=== PATIENT | male | born 1960 | race Caucasian/White ===

== ENCOUNTER 2018-12-15 14:53 | Inpatient (IN) | payer BC, SELFPAY ==
[2018-12-15 14:02] VITALS: BMI 30.3
[2018-12-15 14:11] VITALS: BMI 30.3
[2018-12-15 14:15] VITALS: BP 129/84; PULSE 100; RESP 16; TEMP 36.6; O2SAT 95
[2018-12-15 14:28] VITALS: PULSE 101
--- NOTE | 2018-12-15 15:00 | HP.PCM_ITS ---
Problem List (1) Acute on chronic systolic CHF (congestive heart failure) Status: Acute (2) Chronic congestive heart failure Status: Chronic (3) History of right foot osteomyelitis Status: Chronic Comment: Status post amputation of the right little toe. (4) Hyperlipidemia Status: Chronic (5) Ischemic cardiomyopathy Status: Chronic (6) Coronary artery disease Status: Chronic Comment: Status post stents. (7) Type 2 diabetes mellitus Status: Chronic History of Present Illness Date of Admission: 12/15/18 Chief Complaint: Shortness of breath, leg edema. The patient is a 58 year old M with past medical history as mentioned above directly admitted from other facility for worsening shortness of breath and leg edema. According to the patient, his illness started around 1 week ago with slowly and progressively increasing shortness of breath, initially was with intense exertion, progressed over the last week to become even with moderate exertion, aggravated by activity, relieved with rest and associated with increasing bilateral leg edema. Patient denies any associated chest pain, palpitation, dizziness, syncope or presyncope. Initially, patient states that he has been taking his medications. His was at the bedside and she stated that he is not taking his medications. Patient admitted that he stopped taking his medications including diuretics since July,. He mentioned that he has been taking only his insulin. At this time, he is afebrile, heart rate is 100, blood pressure stable, pulse ox is 95% on 4 L of oxygen. Routine blood work that was done at the other facility was unremarkable except his blood sugar was 412 mg/dL and there was no evidence of DKA. His EKG revealed sinus tachycardia, heart rate has been around 100, normal MT interval, normal QRS, no acute ST elevation. Troponin was 0.205. Chest x-ray showed bilateral pulmonary vascular congestion with small left pleural effusion. He is being admitted for acute on chronic probably systolic CHF due to noncompliance as well as borderline elevated troponin. Past Medical History Past Medical History (Chronic Problems): Chronic Problems Chronic congestive heart failure (Chronic) History of right foot osteomyelitis (Chronic) Status post amputation of the right little toe. Hyperlipidemia (Chronic) Ischemic cardiomyopathy (Chronic) Coronary artery disease (Chronic) Status post stents. Type 2 diabetes mellitus (Chronic) Home Medications: Ambulatory Orders Medication Instructions Recorded Aspirin [Aspirin, Baby] 81 mg PO DAILY 12/15/18 Atorvastatin Calcium 80 mg PO DAILY 12/15/18 Furosemide [Lasix] 20 mg PO DAILY 12/15/18 Insulin NPH Hum/Reg Insulin Hm 1 unit SQ ACHS 12/15/18 [Relion Novolin 70-30 Flexpen] Lisinopril [Zestril] 5 mg PO DAILY 12/15/18 Metoprolol(XL)Succ [Toprol Xl 25 mg PO DAILY 12/15/18 (Beta Cash)] Surgical History: - - Amputation of the right little, wrist surgery. Cardiac stents. Psychiatric History: No pertinent psych hx Lives: Spouse/ Significant Other Smoking Status: Former smoker Alcohol: Occasional Drugs: None - *Family History Maternal History Items: No pertinent history Paternal History Items: No pertinent history Review of Systems Constitutional: Denies: Anorexia, Chills, Fever, Weakness Eyes: Denies: Blurred vision, Double vision, Drainage, Redness HEENT: Denies: Difficulty Hearing, Ear Pain, Eye Pain, Hard of Hearing, Nasal bleeding, Sore Throat Cardiovascular: Reports: Edema. Denies: Chest Pain, Chest Pressure, Heaviness, Light Headedness, Orthopnea, Paroxysmal Noc. Dyspnea, Syncope Respiratory: Reports: Shortness of breath upon exertion. Denies: Cough, Pleuritic Pain, Sputum production, Wheezing Gastrointestinal: Denies: Abdominal Pain, Constipation, Diarrhea, Nausea, Vomiting Genitourinary: Denies: Dysuria, Frequency, Hematuria Musculoskeletal: Denies: Arm Pain, Back Pain, Foot Pain Skin: Denies: Dryness, Rash Neurological: Denies: Balance problems, Double vision, Change in Speech, Slurred speech, Confusion, Headaches, Incoordination, Numbness Psychiatric: Denies: Anxiety, Depression Endocrine: Denies: Polydipsia, Polyuria VTE Information - Inpt Only VTE Present on Admission: No VTE Mechan Device Prophylaxis: None VTE Pharm Prophylaxis ordered?: Yes Patient Problems: Active and Suspected Problems Acute on chronic systolic CHF (congestive heart failure) (Acute) - Physical Exam General: Alert, Oriented x3, Cooperative, No apparent distress HEENT: Atraumatic, PERRLA, EOMI, Normocephalic Oral: Moist Mucosa, No Gingival or Mucosal Lesions/ Ulcerations Neck: Supple, No JVD, Negative Carotid Bruits, Trachea Midline, Thyroid Normal Size and Texture Lungs: Diminished, Rales, Rhonchi, - - Decreased breath sounds bilateral, faint crackles bilaterally at the bases. Cardiovascular: Regular rate, Regular Rhythm, Normal S1, Normal S2, PMI Normal, Tachycardic Abdomen: Bowel Sounds Present, Soft, Non Tender, Non-Distended, No Hepato- splenomegaly Extremities: No clubbing, No cyanosis, Edema - ++ Edema., - - Status post amputation of the right little toe. Skin: No rashes, No breakdown Lymphatic: No Cervical, Supraclavicular, or Inguinal Adenopathy Neurological: Cranial nerves II-XII grossly intact, Motor Exam 5/5 strength throughout Psych/Mental Status: Normal Affect, Appropriate, Alert and oriented to time, place, person, mood and affect Vital Signs Temp Pulse Resp BP Pulse Ox 97.8 F 100 16 129/84 H 95 12/15/18 14:15 12/15/18 14:15 12/15/18 14:15 12/15/18 14:15 12/15/18 14:15 Oxygen Flow Rate (L/min) 4 Oxygen Delivery Method Nasal Cannula Weight: 187 lb 13.341 oz Body Mass Index (BMI) 30.3 Laboratory data: CBC: Hemoglobin 14.5, WBC 5.6, platelet count is 212,000. BMP: Sodium 143, potassium 4.5, chloride 104, serum bicarb is 29, BUN 16, creatinine is 0.85. Troponin is 0.205, BNP is 2171. Urine for ketones was negative. Chest x-ray: Bilateral pulmonary vascular congestion, small left pleural effusion. Assessment/Plan All Active Problems Acute on chronic systolic CHF (congestive heart failure) (Acute) This is a 58 years old male patient admitted directly from other facility for shortness of breath with leg edema and was found to have acute on chronic probably systolic CHF as well as elevated troponin and he is being admitted for evaluation and treatment. #1 acute on chronic probably systolic CHF: Due to noncompliance, patient stopped taking his medication since July,. Based on symptoms, chest x-ray findings, elevated BNP as well as history of CHF and ischemic cardiomyopathy. He denies any chest pain. EKG revealed no acute ST elevation or acute ischemic changes. Plan: Admit to PCU, cardiac monitoring, serial cardiac enzymes, repeat EKG tomorrow morning, start IV Lasix for diuresis, 2D echocardiogram, fluid restriction to less than 1500 cc daily, continue metoprolol and lisinopril, repeat BMP and CBC tomorrow morning, PT OT evaluation and treatment. #2 elevated troponin: Likely due to heart strain from acute CHF. Patient denied chest pain. EKG reviewed, no acute ischemic changes. Plan: Cardiac monitoring, serial cardiac enzymes, 2D echocardiogram, continue aspirin, statins, beta- blockers and ALLISON inhibitors. #3 chronic systolic CHF/ischemic cardiomyopathy: With acute exacerbation as above due to noncompliance. Plan as above. #4 CAD status post stents: Plan as above, 2D echocardiogram, serial cardiac enzymes, continue aspirin, statins, beta-blockers and ALLISON inhibitors. #5 uncontrolled type 2 diabetes mellitus: Blood sugar is 412, no DKA. Urine was negative for ketones. Plan: Hemoglobin A1c, continue home doses of insulin, Accu-Cheks every 6 hours, insulin sliding scale. #6 hypertension: Blood pressure stable, continue lisinopril and metoprolol, IV Lasix for diuresis. #7 hyperlipidemia: Continue statins. #8 history of right foot osteomyelitis: Status post amputation of the right little toe, stable, no evidence of open wounds or infection on the right foot. #9 DVT prophylaxis: Subcu Lovenox. This note was generated with [employer] dictation software. It may contain incorrect words, spelling, and punctuation that were not noted in checking the note before signing. Code Visit Inpatient E&M: 41474 Init Hosp L3
--- NOTE | 2018-12-15 15:14 | ECHOCS_ITS ---
Reason For Study: CHF Procedure This was a 2D Doppler, Color Flow transthoracic echocardiogram. Contrast injection was performed. Exam performed portable in patient room. Left Ventricle Moderately dilated left ventricle. The estimated ejection fraction is 25 %. Stage 2 diastolic dysfunction. There is severe global hypokinesis of the left ventricle. Right Ventricle Normal RV size. Normal systolic function. Atria The left atrium is mildly enlarged. Normal right atrium. Mitral Valve Normal mitral valve. Tricuspid Valve Normal tricuspid valve. Mild to moderate (1-2+) tricuspid valve insufficiency. Pulmonary artery systolic pressure is 39 mmHg. Aortic Valve Normal aortic valve. Trisinus/trileaflet aortic valve. Pulmonic Valve Normal pulmonic valve. Great Vessels Normal aortic root. The pulmonary artery is normal size. Normal inferior vena cava. Pericardium/Pleural No pericardial effusion. Medication Diluted definity 3ml given slow IV push to enhance endocardial definition. MMode/2D Measurements & Calculations LVIDd: 6.0 cm IVSd: 0.90 cm Ao root diam: 2.7 cm LVIDs: 5.6 cm LVPWd: 0.75 cm RVDd: 4.7 cm FS: 7.4 % LAV(MOD-bp): 56.6 ml LVAd ap4: 40.5 cm2 SV(MOD-sp4): 37.5 ml LAV(MOD-bp) Indexed: 29.1 ml/m2 EDV(MOD-sp4): 153.1 ml LAV(MOD-sp2): 50.4 ml EDV(sp4-el): 158.9 ml LAV(MOD-sp4): 56.1 ml LVAs ap4: 32.9 cm2 ESV(MOD-sp4): 115.5 ml ESV(sp4-el): 119.8 ml EF(MOD-sp4): 24.5 % EF(sp4-el): 24.7 % SV(sp4-el): 39.2 ml LA A4 area: 20.1 cm2 LA dimension(2D): 4.4 cm RA A4 area: 12.9 cm2 Doppler Measurements & Calculations MV E max orion: 104.6 cm/sec Lat Peak E' Orion: 4.0 cm/sec Med Peak E' Orion: 4.0 cm/sec MV A max orion: 76.6 cm/sec E/E' lat: 26.1 E/E' med: 26.1 MV E/A: 1.4 Ao V2 max: 92.3 cm/sec LV V1 max: 80.0 cm/sec PA V2 max: 94.4 cm/sec Ao max P.4 mmHg LV V1 max P.6 mmHg Ao V2 mean: 75.5 cm/sec Ao mean P.4 mmHg Ao V2 VTI: 17.8 cm TR max orion: 292.6 cm/sec TR max P.3 mmHg Interpretation Summary Moderately dilated left ventricle. The estimated ejection fraction is 25 %. Stage 2 diastolic dysfunction. The left atrium is mildly enlarged. Mild to moderate (1-2+) tricuspid valve insufficiency. Ordering Physician: Ida Camargo Performed By: Gema Mcguire, LINDSEY, RVT
[2018-12-15 15:35] VITALS: O2SAT 96
[2018-12-15 16:13] LABS: Hemoglobin A1c 12.4 % (4.2-6.3)
[2018-12-15 16:19] LABS: Thyroid Stim Hormone (TSH) 1.16 uIU/mL (0.358-3.74)
[2018-12-15] MEDS: Insulin Lispro 100 UNIT/ML INSULN.PEN SC ×2 (17:14→23:42)
[2018-12-15 17:25] LABS: Bedside Glucose 281 mg/dL (70-110)
[2018-12-15 19:01] VITALS: PULSE 108
[2018-12-15 19:49] VITALS: BP 125/81; PULSE 103; RESP 18; TEMP 36.8; O2SAT 94
[2018-12-15] MEDS: Furosemide 40 MG/4 ML Vial IV (21:27)
[2018-12-15] MEDS: Insulin Human 75/25 Kwickpen 40 UNIT SC (21:28)
[2018-12-15 21:55] LABS: Bedside Glucose 311 mg/dL (70-110)
[2018-12-15 23:35] VITALS: BP 124/71; PULSE 104; RESP 18; TEMP 36.8; O2SAT 94
[2018-12-15 23:51] LABS: Bedside Glucose 249 mg/dL (70-110)
[2018-12-16] VITALS (12 sets, daily range): BP systolic 102–127; BP diastolic 61–72; PULSE 84–102; RESP 16–18; TEMP 36.6–36.9; O2SAT 94–98
[2018-12-16] MEDS: Acetaminophen 325 MG Tablet 650 MG PO (01:51)
[2018-12-16] MEDS: Ondansetron 4 MG/2 ML Vial IV (05:24)
[2018-12-16] MEDS: Furosemide 40 MG/4 ML Vial IV ×3 (05:31→21:54)
[2018-12-16 05:45] LABS: Bedside Glucose 113 mg/dL (70-110)
[2018-12-16 05:53] LABS: International Normalized Ratio 1.1; Prothrombin Time (Protime)PT. 13.8 SECONDS (11.7-14.9)
--- NOTE | 2018-12-16 05:55 | EKG12_ITS ---
Test Reason : AM EKG Blood Pressure : / mmHG Vent. Rate : 095 BPM Atrial Rate : 095 BPM P-R Int : 160 ms QRS Dur : 126 ms QT Int : 408 ms P-R-T Axes : 053 -17 110 degrees QTc Int : 512 ms Normal sinus rhythm Possible Left atrial enlargement Non-specific intra-ventricular conduction block Nonspecific T wave abnormality Abnormal ECG No previous ECGs available Confirmed by GUERRERO BURKETT, QUE ([id number]), industrial editor WILLIAM WONG ([id number] on 12/21/2018 11:32:13 AM Referred By: JEAN Confirmed By:QUE MASTERS MD
[2018-12-16 05:56] LABS: Absolute Lymphocyte Count 0.95 X10^3/uL (0.83-4.51); Absolute Neutrophil Count 5.5 X10^3/uL (2.0-7.7); Basophil# 0.04 X10^3/uL; Basophil% 0.6 % (0-1); Eosinophils% 1.4 % (0-5); Hematocrit 46.6 % (40-54); Hemoglobin 14.2 g/dL (13.0-16.5); Lymphocyte # 0.95 X10^3/ul (4.0); Lymphocyte % 13.4 % (19-41); Mean Corp Hgb Conc 30.5 g/dL (32-36); Mean Corpuscular Hgb 27.6 pg (27.0-32.0); Mean Corpuscular Volume 90.7 fL (80-94); Mean Platelet Vol. 10.7 fl (6.2-12.0); Monocyte# 0.53 X10^3/uL; Monocyte% 7.5 % (0-10); NRBC Flagged by Analyzer 0 % (0-5); Neutrophil # 5.47 X10^3/uL (2.7-7.7); Neutrophil % 76.8 % (47-70); Platelet Count 215 K/mm3 (150-450); RBC Distribution Width SD 46.3 fl (35.1-43.9); Red Blood Count 5.14 M/mm3 (4.6-6.2); White Blood Count 7.1 K/mm3 (4.4-11.0)
[2018-12-16 05:59] LABS: Anion Gap 4 (5-15); BUN 14 mg/dL (7-18); BUN/Creat Ratio 15.1 RATIO (10-20); Calcium,Total 8.4 mg/dL (8.5-10.1); Chloride 107 mmol/L (98-107); Creatinine, Serum 0.93 mg/dL (0.70-1.30); EST Glomerular Filtration Rate 89 mL/min (>60); Est Glom Filt Rate - Afr Amer 107 mL/min (>60); Estimated Creatinine Clearance 77.18 ml/min; Glucose 102 mg/dL (74-106); Potassium 4.2 mmol/L (3.5-5.1); Sodium Level 143 mmol/L (136-145)
[2018-12-16 07:02] LABS: Magnesium 1.7 mg/dL (1.6-2.6)
--- NOTE | 2018-12-16 08:33 | PCM.PROGNOTE ---
Patient Problems: Active and Suspected Problems Acute on chronic systolic CHF (congestive heart failure) (Acute) Subjective: Chief complaint: Follow-up after admission for acute on chronic probably systolic CHF, uncontrolled type 2 diabetes mellitus and non-ST elevation TN. Patient seen and examined. No acute events overnight. When I entered the room, patient complained of nausea and vomiting and he was throwing up. He denies any abdominal pain, fever or chills. He denies chest pain, palpitation, dizziness or lightheadedness. He mentioned that his breathing is getting better. He is afebrile, blood pressure and heart rate are stable, pulse ox is 95% on 4 L. - Physical Exam General: Alert, Oriented x3, Cooperative, No apparent distress HEENT: Atraumatic, PERRLA, EOMI, Normocephalic Oral: Moist Mucosa, No Gingival or Mucosal Lesions/ Ulcerations Neck: Supple, No JVD, Negative Carotid Bruits, Trachea Midline, Thyroid Normal Size and Texture Lungs: No rhonchi, No wheeze, Diminished, Rales, - - Decreased breath sounds bilateral, mainly at the bases, faint crackles. Cardiovascular: Regular rate, Regular Rhythm, Normal S1, Normal S2, PMI Normal Abdomen: Bowel Sounds Present, Soft, Non Tender, Non-Distended, No Hepato-splenomegaly Extremities: No clubbing, No cyanosis, Edema - ++ Edema. Skin: No rashes, No breakdown Lymphatic: No Cervical, Supraclavicular, or Inguinal Adenopathy Neurological: Cranial nerves II-XII grossly intact, Neuro grossly intact Psych/Mental Status: Normal Affect, Appropriate, Alert and oriented to time, place, person, mood and affect Vital Signs Temp Pulse Resp BP Pulse Ox 97.8 F 98 18 105/69 98 12/16/18 05:30 12/16/18 07:00 12/16/18 05:30 12/16/18 05:30 12/16/18 07:40 Oxygen Flow Rate (L/min) 4 Oxygen Delivery Method Nasal Cannula Weight: 186 lb 15.232 oz Body Mass Index (BMI) 30.3 Intake and Output for Last 24 Hours 12/14/18 12/15/18 12/16/18 23:59 23:59 23:59 Intake Total 440 / 440 100 / 100 Output Total 2125 / 2125 0 / 0 Balance -1685 / -1685 100 / 100 Laboratory Tests Past 24 Hrs 12/15/18 12/15/18 12/15/18 15:20 15:20 15:20 WBC RBC Hgb Hct MCV MCH MCHC RDW Std Deviation RDW Coeff of Cherelle Plt Count MPV Immature Gran % (Auto) Neut % (Auto) Lymph % (Auto) [place] % (Auto) Eos % (Auto) Baso % (Auto) Absolute Neuts (auto) Absolute Lymphs (auto) Nucleated RBC % PT INR Sodium Potassium Chloride Carbon Dioxide Anion Gap BUN Creatinine Estim Creat Clear Calc Est GFR (MDRD) Af Amer Est GFR (MDRD) Non-Af BUN/Creatinine Ratio Glucose Hemoglobin A1c 12.4 H Calcium Magnesium Troponin I 0.715 H* TSH 1.16 12/15/18 12/15/18 12/16/18 18:00 21:00 00:00 WBC RBC Hgb Hct MCV MCH MCHC RDW Std Deviation RDW Coeff of Cherelle Plt Count MPV Immature Gran % (Auto) Neut % (Auto) Lymph % (Auto) [place] % (Auto) Eos % (Auto) Baso % (Auto) Absolute Neuts (auto) Absolute Lymphs (auto) Nucleated RBC % PT INR Sodium Potassium Chloride Carbon Dioxide Anion Gap BUN Creatinine Estim Creat Clear Calc Est GFR (MDRD) Af Amer Est GFR (MDRD) Non-Af BUN/Creatinine Ratio Glucose Hemoglobin A1c Calcium Magnesium Troponin I 0.751 H* 0.741 H* 0.658 H* TSH 12/16/18 12/16/18 12/16/18 05:25 05:25 05:25 WBC 7.1 RBC 5.14 Hgb 14.2 Hct 46.6 MCV 90.7 MCH 27.6 MCHC 30.5 L RDW Std Deviation 46.3 H RDW Coeff of Cherelle 14.0 Plt Count 215 MPV 10.7 Immature Gran % (Auto) 0.300 Neut % (Auto) 76.8 H Lymph % (Auto) 13.4 L [place] % (Auto) 7.5 Eos % (Auto) 1.4 Baso % (Auto) 0.6 Absolute Neuts (auto) 5.5 Absolute Lymphs (auto) 0.95 Nucleated RBC % 0 PT 13.8 INR 1.1 Sodium 143 Potassium 4.2 Chloride 107 Carbon Dioxide 32.0 Anion Gap 4 L BUN 14 Creatinine 0.93 Estim Creat Clear Calc 77.18 Est GFR (MDRD) Af Amer 107 Est GFR (MDRD) Non-Af 89 BUN/Creatinine Ratio 15.1 Glucose 102 Hemoglobin A1c Calcium 8.4 L Magnesium Troponin I TSH 12/16/18 05:25 WBC RBC Hgb Hct MCV MCH MCHC RDW Std Deviation RDW Coeff of Cherelle Plt Count MPV Immature Gran % (Auto) Neut % (Auto) Lymph % (Auto) [place] % (Auto) Eos % (Auto) Baso % (Auto) Absolute Neuts (auto) Absolute Lymphs (auto) Nucleated RBC % PT INR Sodium Potassium Chloride Carbon Dioxide Anion Gap BUN Creatinine Estim Creat Clear Calc Est GFR (MDRD) Af Amer Est GFR (MDRD) Non-Af BUN/Creatinine Ratio Glucose Hemoglobin A1c Calcium Magnesium 1.7 Troponin I TSH POC Glucose 12/16/18 12/15/18 12/15/18 05:38 23:41 21:23 POC Glucose 113 H 249 H 311 H 12/15/18 17:13 POC Glucose 281 H Medical Necessity - Tobacco Use Smoking Status: Former smoker Assessment/Plan All Active Problems Acute on chronic systolic CHF (congestive heart failure) (Acute) This is a 58 years old male patient admitted directly from other facility for shortness of breath with leg edema and was found to have acute on chronic probably systolic CHF as well as elevated troponin and he is being admitted for evaluation and treatment. #1 acute on chronic probably systolic CHF: Due to noncompliance, patient stopped taking his medication since July,. He is on IV Lasix, on metoprolol and lisinopril. Shortness of breath started to improve, still requiring oxygen of up to 24 L. Repeat EKG revealed normal sinus rhythm, T wave inversion in leads V5 and V6 and those are new compared to the EKG from yesterday. Patient denies any chest pain. Plan to continue IV diuresis, repeat BMP tomorrow morning. #2 Non-ST elevation TN: Likely due to heart strain from acute CHF, cannot exclude underlying CAD. Patient denied chest pain. EKG from today reviewed as above, revealed new T wave inversion in leads V5 and V6, no other acute changes. Troponin is elevated and started to trend down. Patient is on aspirin, statins, beta-blockers and ALLISON inhibitors. 2D echocardiogram ordered. Cardiology consulted, awaiting recommendations. #3 chronic systolic CHF/ischemic cardiomyopathy: With acute exacerbation as above due to noncompliance. Plan as above. #4 CAD status post stents: Plan as above, 2D echocardiogram. troponin is elevated, cardiology consulted. Continue aspirin, statins, beta-blockers and ALLISON inhibitors. #5 uncontrolled type 2 diabetes mellitus: Hemoglobin A1c was 12.4. Blood sugar has been around 200s to 300s, it was 130 this morning. Patient is on Humalog mix nightly and sliding scale. Plan to continue Accu-Cheks and sliding scale for now. #6 hypertension: Blood pressure stable, continue lisinopril and metoprolol, IV Lasix for diuresis. #7 hyperlipidemia: Continue statins. #8 history of right foot osteomyelitis: Status post amputation of the right little toe, stable, no evidence of open wounds or infection on the right foot. #9 DVT prophylaxis: Subcu Lovenox. This note was generated with [employer] dictation software. It may contain incorrect words, spelling, and punctuation that were not noted in checking the note before signing. Code Visit Inpatient E&M: 68797 Subs Hosp L2
--- NOTE | 2018-12-16 09:27 | PCM.CONS.C ---
Problem List (1) Acute on chronic systolic CHF (congestive heart failure) Status: Acute Reason for Consult Date of Consultation: 12/16/18 Reason for Consultation: CHF exacerbation History of Present Illness: The patient is a 58 year old M who is being seen by request of the hospitalist team. He is an individual with past cardiac history of coronary artery disease, stenting x2 of unknown vessels, probable ischemic cardiomyopathy, who was transferred from the outside hospital, where he presented yesterday with complaints of chest congestion. According to the patient, over the past several days he was feeling worsening shortness of breath, which was associated with orthopnea and paroxysmal nocturnal dyspnea, he also admits to having some weight gain and bilateral lower extremity edema, along with some worsening appetite and fatigue. He was found to be somewhat hypoxic with O2 saturation in mid 80s while lying in bed. In the outside facility, x-ray demonstrated pulmonary congestion. ECG demonstrated sinus tachycardia at 106, with inferior Q waves, otherwise unremarkable. ECG from this morning demonstrated sinus rhythm at 95 bpm, with nonspecific ST/T wave abnormalities in leads V5 and V6. Telemetry showed normal sinus rhythm overnight. It was noted, that the patient stopped taking his cardiac medications for quite a while. Upon transfer, he was started on loop diuretics, Lasix 40 mg IV 3 times a day. He used to receive his cardiac care a while ago from Dr. Abbasi at [facility], but has not seen him or any other bolt loader for quite a while. Past Medical History Allergies/Adverse Reactions: Allergies No Known Allergies Allergy (Verified 12/15/18 15:04) Home Medications: Ambulatory Orders Medication Instructions Recorded Aspirin [Aspirin, Baby] 81 mg PO DAILY 12/15/18 Atorvastatin Calcium 80 mg PO DAILY 12/15/18 Furosemide [Lasix] 20 mg PO DAILY 12/15/18 Insulin NPH Hum/Reg Insulin Hm 40 unit SQ QHS 12/15/18 [Relion Novolin 70-30 Flexpen] Lisinopril [Zestril] 5 mg PO DAILY 12/15/18 Metoprolol(XL)Succ [Toprol Xl 25 mg PO DAILY 12/15/18 (Beta Cash)] Past Medical History (Chronic Problems): Chronic Problems Chronic congestive heart failure (Chronic) History of right foot osteomyelitis (Chronic) Status post amputation of the right little toe. Hyperlipidemia (Chronic) Ischemic cardiomyopathy (Chronic) Coronary artery disease (Chronic) Status post stents. Type 2 diabetes mellitus (Chronic) Surgical History: - - Amputation of the right little, wrist surgery. Cardiac stents. Psychiatric History: No pertinent psych hx - *Family History Maternal History Items: No pertinent history Paternal History Items: No pertinent history Lives: Spouse/ Significant Other Smoking Status: Former smoker Alcohol: Occasional Drugs: None Review of Systems - Review of Systems General: Reports: Decreased Appetite. Denies: Fever, Fatigue, Night Sweats Cardiovascular: Reports: Shortness of Breath, Shortness of Breath at Rest, Shortness of Breath with Exertion, Orthopnea, Peripheral Edema. Denies: Chest Discomfort, PND, Palpitations, Lightheadedness, Dizziness, Near Syncope, Syncope Respiratory: Denies: Cough, Sputum Production, Hemoptysis Gastrointestinal: Denies: Hematemesis, Hematochezia, Melena Genitourinary: Denies: Dysuria, Hematuria Skin: Denies: Rash Objective: Vital Signs Temp Pulse Resp BP Pulse Ox 97.8 F 98 18 105/69 98 12/16/18 05:30 12/16/18 07:00 12/16/18 05:30 12/16/18 05:30 12/16/18 07:40 Oxygen Flow Rate (L/min) 4 Oxygen Delivery Method Nasal Cannula Weight: 84.8 kg Body Mass Index (BMI) 30.3 Intake and Output for Last 24 Hours 12/14/18 12/15/18 12/16/18 23:59 23:59 23:59 Intake Total 440 / 440 100 / 100 Output Total 2125 / 2125 0 / 0 Balance -1685 / -1685 100 / 100 General: Awake, Alert, Oriented x 3 HEENT: PERRL, EOMI, Sclera Non Icteric Neck: Supple, Good ROM, No Lymph Node Enlargement Lungs: Diminished Devaughn Bases Cardiovascular: Regular Rhythm, Normal S1, Normal S2, No Murmurs, No Rubs, Positive S3 Vascular: No Carotid Bruits, Normal Femoral Pulses, Normal Radial Pulses, Normal Dorsalis Pedal Pulse, Normal Posterior Tibial Pulses Abdomen: Bowel Sounds Present, Soft, Non Tender, No HSM, No Organomegaly Extremities: No Cyanosis, No Clubbing, Bilateral Edema +2 Neurological: No Focal Motor or Sensory Deficit 12/15/18 15:20: Hemoglobin A1c 12.4 H 12/15/18 15:20: Troponin I 0.715 H* 12/15/18 18:00: Troponin I 0.751 H* 12/15/18 21:00: Troponin I 0.741 H* 12/16/18 00:00: Troponin I 0.658 H* 12/16/18 05:25: WBC 7.1, RBC 5.14, Hgb 14.2, Hct 46.6, MCV 90.7, MCH 27.6, MCHC 30.5 L, Plt Count 215, MPV 10.7, Immature Gran % (Auto) 0.300, Neut % (Auto) 76.8 H, Lymph % (Auto) 13.4 L, [place] % (Auto) 7.5, Eos % (Auto) 1.4, Baso % (Auto) 0.6, Absolute Neuts (auto) 5.5, Nucleated RBC % 0 12/16/18 05:25: PT 13.8, INR 1.1 12/16/18 05:25: Sodium 143, Potassium 4.2, Chloride 107, Carbon Dioxide 32.0, Anion Gap 4 L, BUN 14, Creatinine 0.93, Est GFR (MDRD) Af Amer 107, Est GFR (MDRD) Non-Af 89, BUN/Creatinine Ratio 15.1, Glucose 102, Calcium 8.4 L 12/16/18 05:25: Magnesium 1.7 Rhythm: EKG: See above ECHO: Stress Test: Cardiac Cath: PCI: CT Surgery: Holter monitor: EPS: PPM: CXR: Chest CT Scan: Assessment/Plan 1. The presentation is likely consistent with acute on chronic decompensated congestive heart failure exacerbation, which may be partly related to noncompliance with prescribed medical therapy and lack of care. Clearly, appears hypervolemic by physical exam. Agree with IV diuresis. Would also initiate spironolactone 25 mg once a day. Monitor I's and O's, fluid restriction. Echocardiogram to assess left ventricular ejection fraction. Please obtain prior records from [facility] in regards to his cardiac care and previous work-up. 2. Mild troponin elevation, likely related to acute on chronic CHF exacerbation. Doubt acute coronary syndrome. Importance of compliance with the treatment plan, as well as necessity to establish with a bolt loader or stressed with the patient and his , verbalized understanding. Code Visit Inpatient E&M: 51396 Init Hosp L3
[2018-12-16] MEDS: Lisinopril 5 MG Tablet PO (09:49)
[2018-12-16] MEDS: Aspirin 81 MG TAB.CHEW PO (09:49)
[2018-12-16] MEDS: Metoprolol(XL)Succ 25 MG Tablet PO (09:49)
[2018-12-16] MEDS: Enoxaparin 40 MG/0.4 ML Syringe SC (09:50)
[2018-12-16] MEDS: Spironolactone 25 MG Tablet PO (11:23)
[2018-12-16 11:45] LABS: Bedside Glucose 160 mg/dL (70-110)
[2018-12-16] MEDS: Insulin Lispro 100 UNIT/ML INSULN.PEN SC ×3 (12:01→23:52)
[2018-12-16 16:55] LABS: Bedside Glucose 343 mg/dL (70-110)
--- NOTE | 2018-12-16 20:04 | NURSING ---
Verbal report given to Óscar Hernández RN. He will resume care of pt at this time.
[2018-12-16] MEDS: Atorvastatin Calcium 80 MG Tablet PO (21:54)
[2018-12-16] MEDS: Insulin Human 75/25 Kwickpen 40 UNIT SC (21:56)
[2018-12-16 22:06] LABS: Bedside Glucose 312 mg/dL (70-110)
[2018-12-17] VITALS (11 sets, daily range): BP systolic 97–110; BP diastolic 54–65; PULSE 82–96; RESP 14–20; TEMP 36.6–37.1; O2SAT 93–96
[2018-12-17 00:01] LABS: Bedside Glucose 349 mg/dL (70-110)
[2018-12-17 05:51] LABS: Bedside Glucose 92 mg/dL (70-110)
[2018-12-17] MEDS: Furosemide 40 MG/4 ML Vial IV ×2 (06:08→18:49)
[2018-12-17 06:36] LABS: Anion Gap 4 (5-15); BUN 19 mg/dL (7-18); BUN/Creat Ratio 19.9 RATIO (10-20); Calcium,Total 8.6 mg/dL (8.5-10.1); Chloride 104 mmol/L (98-107); Creatinine, Serum 0.95 mg/dL (0.70-1.30); EST Glomerular Filtration Rate 86 mL/min (>60); Est Glom Filt Rate - Afr Amer 104 mL/min (>60); Estimated Creatinine Clearance 75.55 ml/min; Glucose 42 mg/dL (74-106); Potassium 2.9 mmol/L (3.5-5.1); Sodium Level 144 mmol/L (136-145)
[2018-12-17] MEDS: Dextrose 50%-Water 25 GM/50 ML DISP.SYRIN IV (06:46)
[2018-12-17 07:01] LABS: Bedside Glucose 112 mg/dL (70-110)
[2018-12-17 07:06] LABS: Bedside Glucose 63 mg/dL (70-110)
--- NOTE | 2018-12-17 07:14 | CON.PCM_ITS ---
Reason for Consult Date of Consultation: 12/17/18 Reason for Consultation: Shortness of breath. History of Present Illness: The patient is a 58 year old M directly admitted from other facility for worsening shortness of breath and leg edema. According to the patient, his illness started around 1 week ago with slowly and progressively increasing shortness of breath, initially was with intense exertion, progressed over the last week to become even with moderate exertion, aggravated by activity, relieved with rest and associated with increasing bilateral leg edema. Patient denies any associated chest pain, palpitation, dizziness, syncope or presyncope. Initially, patient states that he has been taking his medications. His was at the bedside and she stated that he is not taking his medications. Patient admitted that he stopped taking his medications including diuretics since July,. He mentioned that he has been taking only his insulin. At this time, he is afebrile, heart rate is 100, blood pressure stable, pulse ox is 95% on 4 L of oxygen. Routine blood work that was done at the other facility was unremarkable except his blood sugar was 412 mg/dL and there was no evidence of DKA. His EKG revealed sinus tachycardia, heart rate has been around 100, no rmal MA interval, normal QRS, no acute ST elevation. Troponin was 0.205. Chest x-ray showed bilateral pulmonary vascular congestion with small left pleural effusion. He is being admitted for acute on chronic probably systolic CHF due to noncompliance as well as borderline elevated troponin. Past medical history is significant for coronary artery disease dating back to 2011 when he underwent two-vessel angioplasty with PCI of the left anterior descending artery, was noted to have an ostial 90% stenosis of the first diagonal vessel, mild disease in the right coronary artery and PCI of the proximal left circumflex artery. He has really not had any significant medical follow-up since then. Past Medical History Allergies/Adverse Reactions: Allergies No Known Allergies Allergy (Verified 12/15/18 15:04) Home Medications: Ambulatory Orders Medication Instructions Recorded Aspirin [Aspirin, Baby] 81 mg PO DAILY 12/15/18 Atorvastatin Calcium 80 mg PO DAILY 12/15/18 Furosemide [Lasix] 20 mg PO DAILY 12/15/18 Insulin NPH Hum/Reg Insulin Hm 40 unit SQ QHS 12/15/18 [Relion Novolin 70-30 Flexpen] Lisinopril [Zestril] 5 mg PO DAILY 12/15/18 Metoprolol(XL)Succ [Toprol Xl 25 mg PO DAILY 12/15/18 (Beta Cash)] Past Medical History (Chronic Problems): Chronic Problems Chronic congestive heart failure (Chronic) History of right foot osteomyelitis (Chronic) Status post amputation of the right little toe. Hyperlipidemia (Chronic) Ischemic cardiomyopathy (Chronic) Coronary artery disease (Chronic) Status post stents. Type 2 diabetes mellitus (Chronic) Surgical History: - - Amputation of the right little, wrist surgery. Cardiac stents. Psychiatric History: No pertinent psych hx - *Family History Maternal History Items: No pertinent history Paternal History Items: No pertinent history Lives: Spouse/ Significant Other Smoking Status: Former smoker Alcohol: Occasional Drugs: None Review of Systems - Review of Systems General: Denies: Fever, Night Sweats, Fatigue HEENT: Denies: Vision Change Cardiovascular: Reports: Shortness of Breath, Shortness of Breath at Rest, Shortness of Breath with Exertion. Denies: Chest Discomfort, Orthopnea, PND, Peripheral Edema, Palpitations, Lightheadedness, Dizziness, Near Syncope, Syncope Respiratory: Denies: Cough, Sputum Production, Hemoptysis Gastrointestinal: Denies: Hematemesis, Hematochezia, Melena Genitourinary: Denies: Dysuria, Hematuria Muscoloskeletal: Denies: Myalgias Skin: Denies: Rash Neurological: Denies: Dizziness Psychiatric: Denies: Anxiety Endocrine: Denies: Unexplained Weight Loss Hematologic/ Lymphatic: Denies: Anemia Subjectve: Pleasant gentleman in no distress. Objective: Vital Signs Temp Pulse Resp BP Pulse Ox 97.9 F 86 16 110/60 94 12/17/18 03:40 12/17/18 03:40 12/17/18 03:40 12/17/18 03:40 12/17/18 03:40 Oxygen Flow Rate (L/min) 2 Oxygen Delivery Method Nasal Cannula Weight: 184 lb 1.376 oz Body Mass Index (BMI) 30.3 Intake and Output for Last 24 Hours 12/15/18 12/16/18 12/17/18 23:59 23:59 23:59 Intake Total 440 / 440 1090 / 1090 0 / 0 Output Total 2125 / 2125 2950 / 2950 600 / 600 Balance -1685 / -1685 -1860 / -1860 -600 / -600 General: Awake, Alert, Oriented x 3 HEENT: PERRL, EOMI, Sclera Non Icteric Neck: Supple, Good ROM, No Lymph Node Enlargement Lungs: Clear to auscultation Cardiovascular: Regular Rhythm, Normal S1, Normal S2, No Murmurs, No Rubs, No Gallops Vascular: No Carotid Bruits, Normal Femoral Pulses, Normal Radial Pulses, Normal Dorsalis Pedal Pulse, Normal Posterior Tibial Pulses Abdomen: Bowel Sounds Present, Soft, Non Tender, No HSM, No Organomegaly Extremities: No Cyanosis, No Clubbing, No edema Musculoskeletal: No Erythema Skin: No Rashes Lymphatic: No Lymph Node Enlargement Neurological: No Focal Motor or Sensory Deficit Psych/Mental Status: Appropriate 12/17/18 05:50: Sodium 144, Potassium 2.9 L, Chloride 104, Carbon Dioxide 36.0 H , Anion Gap 4 L, BUN 19 H, Creatinine 0.95, Est GFR (MDRD) Af Amer 104, Est GFR (MDRD) Non-Af 86, BUN/Creatinine Ratio 19.9, Glucose 42 L*, Calcium 8.6 Rhythm: EKG: Normal sinus rhythm with no acute changes ECHO: Pending Assessment/Plan #1 acute on chronic probably systolic CHF: Due to noncompliance, patient stopped taking his medication since July,. Based on symptoms, chest x-ray findings, elevated BNP as well as history of CHF and ischemic cardiomyopathy. He denies any chest pain. EKG revealed no acute ST elevation or acute ischemic changes. * We will plan on fluid restriction * Echocardiogram to assess left ventricular function * Intravenous diuresis with Lasix * Continue ALLISON inhibition * We will hold off on the spironolactone for now * #2 elevated troponin: * Above consistent with a non-ST elevation myocardial infarction. Patient denied chest pain. EKG reviewed, no acute ischemic changes. Plan: Cardiac monitoring, serial cardiac enzymes, 2D echocardiogram, continue aspirin, statins, beta-blockers and ALLISON inhibitors. * Will likely need a cardiac catheterization prior to discharge #3 CAD status post stents: * He did undergo two-vessel stenting previously and currently is free of any chest discomfort. The plan will be to continue the current medical therapy. Plan as above, 2D echocardiogram, serial cardiac enzymes, continue aspirin, statins, beta-blockers and ALLISON inhibitors. #4 hypertension: Blood pressure stable, continue lisinopril and metoprolol, IV Lasix for diuresis. #5 hyperlipidemia: Continue statins. Thank you for allowing me to participate in the care of your patient. Please don't hesitate to call if any issues arise
[2018-12-17] MEDS: Aspirin 81 MG TAB.CHEW PO (09:36)
[2018-12-17] MEDS: 0.9% Saline Lock 10 ML Syringe IV ×2 (09:36→18:49)
[2018-12-17] MEDS: Enoxaparin 40 MG/0.4 ML Syringe SC (09:37)
[2018-12-17] MEDS: Metoprolol(XL)Succ 25 MG Tablet PO (09:37)
[2018-12-17] MEDS: Lisinopril 5 MG Tablet PO (09:44)
[2018-12-17 09:56] LABS: Bedside Glucose 184 mg/dL (70-110)
[2018-12-17] MEDS: Insulin Lispro 100 UNIT/ML INSULN.PEN SC ×3 (12:47→21:39)
--- NOTE | 2018-12-17 13:03 | CASEMGMT ---
RN CM Assessment Presentation: Systolic CHF. Intro role of CM and purpose of RN CM assessment to patient in room. Demographics, PCP and Pharmacy verified- Registration profile updated. Pt works, is independent and states he plans to return to work when medically cleared. PCP: Dr. Cormier [place], [place] Specialists: no intraoperative neuro tech. Dr. Allen seeing pt here and would like to continue on dc. RN CM discussed importance of f/u and pt states will be able to see physicians on dc. [facility] Insurance: [place] Prescription Benefit: yes LNOK: , Eliane Butler Living Arrangements: Lives independently, no care needs. Transportation: drives DME: none HHC: none Patient DC goals: Home DC PLAN: Home on discharge. Orlin STEIN RN ACM
--- NOTE | 2018-12-17 13:43 | PCM.PROGNOTE ---
<Suleiman Monroy - Last Filed: 12/17/18 13:43> Patient Problems: Active and Suspected Problems Acute on chronic systolic CHF (congestive heart failure) (Acute) Subjective: Breathing greatly improved, still on small amount of o2 via nc - does not use at home. No CP. Ongoing LE edema. Pt freely admits he was not taking his home medications. He has not smoked since his last CABG. He is agreeable to heart cath. No dizziness/LH. - Physical Exam Vitals/I&O's: Vital Signs Temp Pulse Resp BP Pulse Ox 98.3 F 88 16 110/63 95 12/17/18 09:45 12/17/18 09:45 12/17/18 09:45 12/17/18 09:45 12/17/18 12:53 Oxygen Flow Rate (L/min) 1 Oxygen Delivery Method Nasal Cannula Weight: 184 lb 1.376 oz Body Mass Index (BMI) 30.3 Intake and Output for Last 24 Hours 12/15/18 12/16/18 12/17/18 23:59 23:59 23:59 Intake Total 440 / 440 1090 / 1090 104 / 104 Output Total 2125 / 2125 2950 / 2950 900 / 900 Balance -1685 / -1685 -1860 / -1860 -796 / -796 General: Alert, Oriented x3, Cooperative HEENT: Atraumatic, PERRLA, EOMI, Normocephalic Neck: Supple, No JVD, Negative Carotid Bruits Lungs: Clear to auscultation, Normal air movement Cardiovascular: Regular rate, No murmurs Abdomen: Bowel Sounds Present, Soft, Non Tender Extremities: No edema, Capillary Refill Less than 3 Seconds Skin: No rashes, No breakdown Musculoskeletal: No Tenderness to Palpation of Joints or Extremities Neurological: Cranial nerves II-XII grossly intact Psych/Mental Status: Normal Affect, Appropriate, Alert and oriented to time, place, person, mood and affect Laboratory Results 12/16/18 16:49: POC Glucose 343 H 12/16/18 21:54: POC Glucose 312 H 12/16/18 23:50: POC Glucose 349 H 12/17/18 05:46: POC Glucose 92 12/17/18 05:50: Sodium 144, Potassium 2.9 L, Chloride 104, Carbon Dioxide 36.0 H, Anion Gap 4 L, BUN 19 H, Creatinine 0.95, Estim Creat Clear Calc 75.55, Est GFR (MDRD) Af Amer 104, Est GFR (MDRD) Non-Af 86, BUN/Creatinine Ratio 19.9, Glucose 42 L*, Calcium 8.6 12/17/18 06:37: POC Glucose 63 L 12/17/18 06:58: POC Glucose 112 H 12/17/18 09:40: POC Glucose 184 H Current Medications Acetaminophen (Tylenol) 650 mg PO Q6H PRN PRN PRN Reason: Pain Score 1-3/Temp > 100.7 F Last Admin: 12/16/18 01:51 Dose: 650 mg Documented by: Aspirin (Aspirin, Baby) 81 [facility] Last Admin: 12/17/18 09:36 Dose: 81 mg Documented by: Atorvastatin Calcium (Lipitor) 80 mg PO QHS [facility] Last Admin: 12/16/18 21:54 Dose: 80 mg Documented by: Dextrose (D50w Syringe) 0 gm IV X1 PRN; Protocol PRN Reason: Hypoglycemia Last Admin: 12/17/18 06:46 Dose: 25 gm Documented by: Enoxaparin Sodium (Lovenox) 40 mg SC DAILY [facility] Last Admin: 12/17/18 09:37 Dose: 40 mg Documented by: Furosemide (Lasix) 40 mg IV BID@1000,1800 [facility] Glucagon () 1 mg IM .X1 PRN PRN Reason: Hypoglycemia Insulin Human Lispro (Humalog Kwikpen (Bkc)) 0 unit SC ACHS & 0200 [facility]; Protocol Last Admin: 12/17/18 12:47 Dose: 4 u Documented by: Insulin Lispro Protam/Lispro Human (Humalog Mix 75-25 Kwikpen (Bkc)) 25 unit SC QHS [facility] Lisinopril (Zestril) 5 mg PO DAILY [facility] Last Admin: 12/17/18 09:44 Dose: 5 mg Documented by: Magnesium Hydroxide (Milk Of Magnesia) 30 ml PO DAILY PRN PRN PRN Reason: Constipation Metoprolol Succinate (Toprol Xl (Beta Cash)) 25 mg PO DAILY [facility] Last Admin: 12/17/18 09:37 Dose: 25 mg Documented by: Ondansetron HCl (Zofran) 4 mg IV Q8H PRN PRN PRN Reason: NAUSEA/VOMITING Last Admin: 12/16/18 05:24 Dose: 4 mg Documented by: Potassium Chloride (K-Dur) 40 meq PO DAILYCM [facility] Last Admin: 12/17/18 12:47 Dose: 40 meq Documented by: Promethazine HCl (Phenergan) 12.5 mg IV Q6H PRN PRN PRN Reason: NAUSEA/VOMITING Zolpidem Tartrate (Ambien (Generic)) 5 mg PO QHS PRN PRN PRN Reason: INSOMNIA Medical Necessity - Tobacco Use Smoking Status: Former smoker Assessment/Plan All Active Problems Acute on chronic systolic CHF (congestive heart failure) (Acute) 1. NSTEMI, hx CAD/CABG - heart cath in AM. Echo shows EF 25%, stage 2 diastolic dysfunction, severe global hypokinesis LV, PASP 39mmHg,1-2+ TVI Dr. Allen following. max troponin 0.715. currently no CP. On asa/statin/allison/metoprolol 2. Acute on chronic systolic CHF exacerbation, ischemic cardiomyopathy - continue lasix. continued pitting edema, SOB markedly improved. CO2 trending up, will replete. TSH normal. Continue allison. 3. Nonsustained vtach - on monitor. Mag/K replaced (both low). Recheck in AM. 4. T2DM with hypoglycemia - insulin decreased. A1C 12.4. I suspect he was not taking his home medications for diabetes either. 5. HTN - controlled well here. 6. HLD - statin 7. Hx right 5th toe amputation 2/2 osteo. stable. 8. Former smoker DVT ppx: lovenox DC planning: pending cath results. This patient was seen by Suleiman Monroy PA-C under the supervision of Doctor Vinny. <Dario Casillas - Last Filed: 12/17/18 15:36> Subjective: Seen and examined. Discussed with patient and his daughter near the bedside. Patient shortness of breath and leg swelling have improved. Denies chest pain. Patient has 2 vessel stenting, LAD and first diagonal ostial 90% as per cardiac cath 2011. - Physical Exam Vitals/I&O's: Vital Signs Temp Pulse Resp BP Pulse Ox 98.4 F 82 14 97/54 L 93 12/17/18 15:15 12/17/18 15:15 12/17/18 15:15 12/17/18 15:15 12/17/18 15:15 Oxygen Flow Rate (L/min) 1 Oxygen Delivery Method Room Air Weight: 184 lb 1.376 oz Body Mass Index (BMI) 30.3 Intake and Output for Last 24 Hours 12/15/18 12/16/18 12/17/18 23:59 23:59 23:59 Intake Total 440 / 440 1090 / 1090 104 / 104 Output Total 2125 / 2125 2950 / 2950 1125 / 1125 Balance -1685 / -1685 -1860 / -1860 -1021 / -1021 General: Alert, Oriented x3, Cooperative HEENT: Atraumatic, PERRLA, EOMI, Normocephalic Neck: Supple, No JVD, Negative Carotid Bruits Lungs: Clear to auscultation, No rhonchi, No wheeze, No rales, Diminished - Air entry is diminished in posterior lung bases Cardiovascular: Regular rate, Regular Rhythm, Normal S1, Normal S2, No murmurs Abdomen: Bowel Sounds Present, Soft, Non Tender, Non-Distended Extremities: Capillary Refill Less than 3 Seconds, Edema - Mild leg edema Skin: No rashes, No breakdown Musculoskeletal: No Tenderness to Palpation of Joints or Extremities, Arthritic Changes Neurological: Cranial nerves II-XII grossly intact Psych/Mental Status: Normal Affect, Appropriate Laboratory Results 12/16/18 16:49: POC Glucose 343 H 12/16/18 21:54: POC Glucose 312 H 12/16/18 23:50: POC Glucose 349 H 12/17/18 05:46: POC Glucose 92 12/17/18 05:50: Sodium 144, Potassium 2.9 L, Chloride 104, Carbon Dioxide 36.0 H, Anion Gap 4 L, BUN 19 H, Creatinine 0.95, Estim Creat Clear Calc 75.55, Est GFR (MDRD) Af Amer 104, Est GFR (MDRD) Non-Af 86, BUN/Creatinine Ratio 19.9, Glucose 42 L*, Calcium 8.6 12/17/18 06:37: POC Glucose 63 L 12/17/18 06:58: POC Glucose 112 H 12/17/18 09:40: POC Glucose 184 H 12/17/18 12:46: POC Glucose 202 H Current Medications Acetaminophen (Tylenol) 650 mg PO Q6H PRN PRN PRN Reason: Pain Score 1-3/Temp > 100.7 F Last Admin: 12/16/18 01:51 Dose: 650 mg Documented by: Aspirin (Aspirin, Baby) 81 [facility] Last Admin: 12/17/18 09:36 Dose: 81 mg Documented by: Atorvastatin Calcium (Lipitor) 80 mg PO QHS [facility] Last Admin: 12/16/18 21:54 Dose: 80 mg Documented by: Clopidogrel Bisulfate (Plavix) 75 mg PO DAILY [facility] Dextrose (D50w Syringe) 0 gm IV X1 PRN; Protocol PRN Reason: Hypoglycemia Last Admin: 12/17/18 06:46 Dose: 25 gm Documented by: Enoxaparin Sodium (Lovenox) 40 mg SC DAILY [facility] Last Admin: 12/17/18 09:37 Dose: 40 mg Documented by: Furosemide (Lasix) 40 mg IV BID@1000,1800 [facility] Glucagon () 1 mg IM .X1 PRN PRN Reason: Hypoglycemia Sodium Chloride () 1,000 mls @ 15 mls/hr IV .Q48H [facility] Insulin Human Lispro (Humalog Kwikpen (Bkc)) 0 unit SC ACHS & 0200 [facility]; Protocol Last Admin: 12/17/18 12:47 Dose: 4 u Documented by: Insulin Lispro Protam/Lispro Human (Humalog Mix 75-25 Kwikpen (Bkc)) 25 unit SC QHS [facility] Lisinopril (Zestril) 5 mg PO DAILY [facility] Last Admin: 12/17/18 09:44 Dose: 5 mg Documented by: Magnesium Hydroxide (Milk Of Magnesia) 30 ml PO DAILY PRN PRN PRN Reason: Constipation Metoprolol Succinate (Toprol Xl (Beta Cash)) 25 mg PO DAILY [facility] Last Admin: 12/17/18 09:37 Dose: 25 mg Documented by: Ondansetron HCl (Zofran) 4 mg IV Q8H PRN PRN PRN Reason: NAUSEA/VOMITING Last Admin: 12/16/18 05:24 Dose: 4 mg Documented by: Potassium Chloride (K-Dur) 40 meq [facility] Last Admin: 12/17/18 12:47 Dose: 40 meq Documented by: Promethazine HCl (Phenergan) 12.5 mg IV Q6H PRN PRN PRN Reason: NAUSEA/VOMITING Zolpidem Tartrate (Ambien (Generic)) 5 mg PO QHS PRN PRN PRN Reason: INSOMNIA Assessment/Plan This patient was seen in conjunction with Suleiman POPE. I have independently interviewed and examined the patient and reviewed pertinent history, examination findings, laboratory and plan of management. I have reviewed the note and agree with the documented findings with the few additional points. In brief, patient is admitted for progressive worsening of shortness of breath for 1 week and bilateral leg edema. No chest pain. EKG shows sinus tachycardia with no acute ST changes. Troponin 0 0.205. Chest x-ray bilateral pulmonary vascular congestion small left pleural effusion. Patient is seen by clerical associate for acute on chronic systolic heart failure. Echo was done reported as EF 25% with a stage II diastolic dysfunction, severe global hypokinesis with moderately dilated LV. LA mildly enlarged. On fluid restriction, intravenous Lasix diuresis, ALLISON inhibitor. Spironolactone on hold. Patient has mildly elevated troponin consistent with non-ST elevation FL. Cardiac cath for tomorrow a.m. Continue medical management. Patient also had nonsustained V. tach on cardiac technologist. Hypokalemia monitor electrolytes and replace accordingly. I have discussed my assessment with Suleiman POPE and orders have been reviewed. Code Visit Inpatient E&M: 95305 Subs Hosp L3
--- NOTE | 2018-12-17 14:55 | CASEMGMT ---
According to the [place] website, the following are in-network tertiary facilities: [facility], [facility], [facility], [facility], [facility], [facility], [facility], [facility], and . Kristen C[place] CM
[2018-12-17 15:01] LABS: Bedside Glucose 202 mg/dL (70-110)
[2018-12-17] MEDS: Clopidogrel Bisulfate 300 MG Tablet PO (15:14)
[2018-12-17 18:33] LABS: Anion Gap 2 (5-15); BUN 23 mg/dL (7-18); BUN/Creat Ratio 18.7 RATIO (10-20); Calcium,Total 8.2 mg/dL (8.5-10.1); Chloride 103 mmol/L (98-107); Creatinine, Serum 1.23 mg/dL (0.70-1.30); EST Glomerular Filtration Rate 64 mL/min (>60); Est Glom Filt Rate - Afr Amer 77 mL/min (>60); Estimated Creatinine Clearance 58.35 ml/min; Glucose 283 mg/dL (74-106); Magnesium 2.2 mg/dL (1.6-2.6); Potassium 4.4 mmol/L (3.5-5.1); Sodium Level 139 mmol/L (136-145)
[2018-12-17 18:41] LABS: Bedside Glucose 235 mg/dL (70-110)
[2018-12-17] MEDS: Insulin Human 75/25 Kwickpen 25 UNIT SC (21:38)
[2018-12-17] MEDS: Atorvastatin Calcium 80 MG Tablet PO (21:40)
[2018-12-17 22:31] LABS: Bedside Glucose 329 mg/dL (70-110)
[2018-12-18] VITALS (18 sets, daily range): BP systolic 105–128; BP diastolic 64–86; PULSE 86–99; RESP 16–20; TEMP 36.4–36.6; O2SAT 90–95
[2018-12-18 03:16] LABS: Bedside Glucose 163 mg/dL (70-110)
--- NOTE | 2018-12-18 05:55 | EKG12_ITS ---
Test Reason : Blood Pressure : / mmHG Vent. Rate : 097 BPM Atrial Rate : 097 BPM P-R Int : 164 ms QRS Dur : 116 ms QT Int : 380 ms P-R-T Axes : 051 -27 094 degrees QTc Int : 482 ms Normal sinus rhythm Possible Left atrial enlargement Inferior infarct , age undetermined Abnormal ECG When compared with ECG of 16-DEC-2018 05:08, MANUAL COMPARISON REQUIRED, DATA IS UNCONFIRMED Confirmed by GUERRERO BURKETT, QUE ([id number]), loan expeditor WILLIAM WONG ([id number]) on 12/21/2018 11:40:47 AM Referred By: Confirmed By:QUE MASTERS MD
[2018-12-18 06:13] LABS: Anion Gap 2 (5-15); BUN 24 mg/dL (7-18); BUN/Creat Ratio 26.4 RATIO (10-20); Calcium,Total 8.3 mg/dL (8.5-10.1); Chloride 104 mmol/L (98-107); Creatinine, Serum 0.91 mg/dL (0.70-1.30); EST Glomerular Filtration Rate 91 mL/min (>60); Est Glom Filt Rate - Afr Amer 110 mL/min (>60); Estimated Creatinine Clearance 78.87 ml/min; Glucose 202 mg/dL (74-106); Sodium Level 140 mmol/L (136-145)
[2018-12-18] MEDS: 0.9% Normal Saline 1,000 ML 15 ML IV (06:36)
[2018-12-18] MEDS: Aspirin 81 MG TAB.CHEW PO (06:37)
[2018-12-18] MEDS: Metoprolol(XL)Succ 25 MG Tablet PO (06:37)
[2018-12-18] MEDS: Lisinopril 5 MG Tablet PO (06:37)
[2018-12-18] MEDS: Clopidogrel Bisulfate 75 MG Tablet PO (06:38)
[2018-12-18 06:56] LABS: Bedside Glucose 197 mg/dL (70-110)
--- NOTE | 2018-12-18 08:51 | CL.D_ITS ---
Patient Name: YO GALLEGOS Study Date: 12/18/2018 Performing: Ian Allen MD Ht: 66.14 inches 168 cm : 1960 Wt: 185.19 lbs 84 kg Age: 58 Gender: male BSA: 1.94 PROCEDURE(S) PERFORMED [id number]/LV CLINICAL PROFILE AND INDICATIONS Indications: LV Dysfunction, Suspected CAD Heart Failure: NYHA Class: 3, Newly Diagnosed: Yes, Heart Failure Type: Systolic Stress/Imaging Stress/Image Study Performed: No CAD Presentations: No Sxs, no angina. CONCLUSIONS Severe triple-vessel disease involving previously stented LAD with a high-grade stenosis, previously stented circumflex artery with high-grade stenosis, distal circumflex artery with high-grade stenosis , and distal left anterior descending artery with moderate to severe stenosis. Severe left ventricul ar systolic dysfunction is noted RECOMMENDATIONS Surgery consult for coronary revascularization DESCRIPTION OF PROCEDURE The patient arrived to the procedure lab. The risks and benefits of the procedure as well as a full d escription of our services here and current unavailability of surgical backup were fully explained to the patient and/or their significant other prior to the catheterization. The Timeout was completed, verifying the correct patient and procedure. The patient's procedural site was prepped and draped in the usual fashion. Local anesthetic was given subcutaneously to right radial region with Lidocaine 2% . Using a modified Seldinger technique, arterial access was obtained via the right radial artery, a 6 Fr sheath was inserted. Right Coronary Artery selective angiography was then performed in multiple v iews using a 5 Fr. 4.0 [place] catheter. Left Coronary Artery selective angiography was performed in mu ltiple views using a 5 Fr. 4.0 [place] catheter. Left Ventriculography was performed in [place]CHISON projection using a 5 Fr. [place] catheter. LV to AO pullback pressures were then recorded.The arterial sheath was pulled and a TR Band was applied for hemostasis CORONARY ANGIOGRAPHY DOMINANCE: Left Dominant LEFT HEART ASSESSMENT Left Ventricular Ejection Fraction: by LV Gram 20 % Global Hypokinesis - Severe Depressed Left Ventricular systolic function LEFT MAIN: Mild calcification, Mild luminal irregularities LEFT ANTERIOR DESCENDING ARTERY: MID LAD: Instent restenosis 80 % DISTAL LAD: 80 irregular % Stenosis CIRCUMFLEX ARTERY: MID CIRC: Instent restenosis 90 % DISTAL CIRC: 90 % Stenosis RAMUS: Mild luminal irregularities less than 30% RIGHT CORONARY ARTERY: PROX RCA: 50 % Stenosis COMPLICATIONS No Complications PROCEDURE MEDICATIONS Versed 1 mg IV Fentanyl 50 mcg IV Oxygen: 2 L/min via nasal cannula Oxygen: 4 L/min via nasal cannula Heparin diluted in 23cc Heparinized saline. Patient given 10cc IA of this solution. 12/18/2018 08:27 :04 Heparin 2000 unit(s) IV 12/18/2018 08:28:07 Verapamil 2.5mg, Ntg 100mcgs, 2000 units of Heparin diluted in 23cc Heparinized saline. Patient give n 10cc IA of this solution. 12/18/2018 08:27:04 SUMMARY OF HEMODYNAMIC DATA Time AIR REST ECG 07:58:10 AO 108/65 (85) SA 08:28:37 LV 86/12, 23 08:35:59 LV 88/13, 24 08:36:07 LV 89/7, 29 08:36:57 LVp 94/10, 32 08:37:06 AOp 95/55 (72) 08:37:11 Signed By Ian Allen MD On 12/18/2018 08:50:42 Ian Allen MD
--- NOTE | 2018-12-18 08:54 | PN.CARD_ITS ---
Subjectve: Patient seen and evaluated underwent cardiac catheterization today Objective: Vital Signs Temp Pulse Resp BP Pulse Ox 97.8 F 94 18 110/72 92 12/18/18 06:30 12/18/18 06:52 12/18/18 06:30 12/18/18 06:37 12/18/18 06:30 Oxygen Flow Rate (L/min) 1 Oxygen Delivery Method Room Air Weight: 184 lb 15.485 oz Body Mass Index (BMI) 30.3 Intake and Output for Last 24 Hours 12/16/18 12/17/18 12/18/18 23:59 23:59 23:59 Intake Total 1090 / 1090 1344 / 1344 0.75 / 0.75 Output Total 2950 / 2950 1974 / 1974 650 / 650 Balance -1860 / -1860 -631 / -631 -649.25 / -649.25 General: Awake, Alert, Oriented x 3 HEENT: PERRL, EOMI, Sclera Non Icteric Neck: Supple, Good ROM, No Lymph Node Enlargement Lungs: Clear to auscultation Cardiovascular: Regular Rhythm, Normal S1, Normal S2, No Murmurs, No Rubs, No Gallops Vascular: No Carotid Bruits, Normal Femoral Pulses, Normal Radial Pulses, Normal Dorsalis Pedal Pulse, Normal Posterior Tibial Pulses Abdomen: Bowel Sounds Present, Soft, Non Tender, No HSM, No Organomegaly Extremities: No Cyanosis, No Clubbing, No edema Musculoskeletal: No Erythema Skin: No Rashes Lymphatic: No Lymph Node Enlargement Neurological: No Focal Motor or Sensory Deficit Psych/Mental Status: Appropriate 12/17/18 17:38: Sodium 139, Potassium 4.4, Chloride 103, Carbon Dioxide 34.0 H, Anion Gap 2 L, BUN 23 H, Creatinine 1.23, Est GFR (MDRD) Af Amer 77, Est GFR (MDRD) Non-Af 64, BUN/Creatinine Ratio 18.7, Glucose 283 H, Calcium 8.2 L 12/17/18 17:38: Magnesium 2.2 12/18/18 05:45: Sodium 140, Potassium 4.0, Chloride 104, Carbon Dioxide 34.0 H, Anion Gap 2 L, BUN 24 H, Creatinine 0.91, Est GFR (MDRD) Af Amer 110, Est GFR (MDRD) Non-Af 91, BUN/Creatinine Ratio 26.4 H, Glucose 202 H, Calcium 8.3 L, Magnesium 2.0 12/18/18 05:45: Phosphorus 3.0 Rhythm: EKG: ECHO: Stress Test: Cardiac Cath: PCI: CT Surgery: Holter monitor: EPS: PPM: CXR: Chest CT Scan: Medical Necessity - Tobacco Use Smoking Status: Former smoker Assessment/Plan #1 acute on chronic probably systolic CHF: Due to noncompliance, patient stopped taking his medication since July,. Based on symptoms, chest x-ray findings, elevated BNP as well as history of CHF and ischemic cardiomyopathy. He denies any chest pain. EKG revealed no acute ST elevation or acute ischemic changes. * We will plan on fluid restriction * Echocardiogram to assess left ventricular function demonstrated an ejection fraction of approximately 20% * Intravenous diuresis with Lasix * Continue ALLISON inhibition * We will hold off on the spironolactone for now * We will switch to oral carvedilol from metoprolol. #2 elevated troponin: * Above consistent with a non-ST elevation myocardial infarction. * Cardiac catheterization demonstrated normal left main coronary artery Left anterior descending artery with previously placed stent with 80% stenosis and distal 70 to 80% stenosis. Left circumflex artery with previously placed stent with 80% stenosis and distal 70 to 80% stenosis. Nondominant right coronary artery with 50% stenosis. Severe left ventricular systolic dysfunction. Based on the above angiographic findings the patient to be considered for coronary artery bypass surgery. Arrangements will be made to transfer the patient to the tertiary care facility after discussion with the cardiac surgeon. #3 CAD status post stents: * He did undergo two-vessel stenting previously and currently is free of any chest discomfort. The plan will be to continue the current medical therapy. Plan as above, 2D echocardiogram, serial cardiac enzymes, continue aspirin, statins, beta-blockers and ALLISON inhibitors. #4 hypertension: Blood pressure stable, continue lisinopril and metoprolol, IV Lasix for diuresis. #5 hyperlipidemia: Continue statins. Thank you for allowing me to participate in the care of your patient. Please don't hesitate to call if any issues arise
[2018-12-18] MEDS: Furosemide 40 MG/4 ML Vial IV ×2 (11:36→18:07)
[2018-12-18] MEDS: Carvedilol 3.125 MG TABLET PO (11:36)
[2018-12-18] MEDS: Insulin Lispro 100 UNIT/ML INSULN.PEN SC ×2 (11:37→17:02)
[2018-12-18] MEDS: 0.9% Saline Lock 10 ML Syringe IV ×2 (11:37→18:07)
[2018-12-18 11:46] LABS: Bedside Glucose 211 mg/dL (70-110)
--- NOTE | 2018-12-18 17:13 | PCM.DC.SUM ---
<Suleiman Monroy - Last Filed: 12/18/18 17:13> Discharge Date and Diagnosis Date of Admission: 12/15/18 Date of Discharge: 12/18/18 - Primary Discharge Diagnosis Active and Suspected Problems NSTEMI, CAD, triple vessel CAD ischemic CM Acute on chronic systolic CHF (congestive heart failure) (Acute) Nonsustained Vtach T2DM with hypoglycemia HTN HLD Hx Right 5th toe amputation 2/2 osteomyelitis Former smoker - Secondary Discharge Diagnosis Chronic Problems Chronic congestive heart failure (Chronic) History of right foot osteomyelitis (Chronic) Status post amputation of the right little toe. Hyperlipidemia (Chronic) Ischemic cardiomyopathy (Chronic) Coronary artery disease (Chronic) Status post stents. Type 2 diabetes mellitus (Chronic) Hospital Course and Treatment Imaging Results: DIAGNOSTICS: ECHO: Interpretation Summary Moderately dilated left ventricle. The estimated ejection fraction is 25 %. Stage 2 diastolic dysfunction. The left atrium is mildly enlarged. Mild to moderate (1-2+) tricuspid valve insufficiency. LEFT HEART CATH: CONCLUSIONS Severe triple-vessel disease involving previously stented LAD with a high-grade stenosis, previously stented circumflex artery with high-grade stenosis, distal circumflex artery with high-grade stenosis, and distal left anterior descending artery with moderate to severe stenosis. Severe left ventricular systolic dysfunction is noted RECOMMENDATIONS Surgery consult for coronary revascularization CONSULTATIONS: Cardiology - Tiffany Operations: None Procedures: 2-D Echocardiogram, Cardiac catheterization Summary of Care Provided: Hospital course: The patient is a 58 year old M with pmhx of CAD, ischemic CM, T2DM, systolic CHF, HTN, HLD, former smoker who presented to the ER with c/o worsening dyspnea on exertion over the week leading up to admission and progressively increasing LE edema. He had not taken any of his cardiac medications since July 2018. He had elevated troponin (max 0.715), elevated BNP, CXR c/w acute CHF exacerbation, and severe LE edema. He was admitted to the PCU on tele for acute on chronic systolic CHF and NSTEMI. Cardiology was consulted. He responded well to diuresis and had good improvement in his breathing. Echo was obtained with results as above. He was taken for a heart catheterization and found to have triple vessel disease as noted above. Cardiology recommended transfer for surgical eval. He was accepted at [facility] with Dr. Peres. He was transferred in stable condition. Other notes: He has some ongoing LE edema. He has had a mild bump in CO2 possibly contraction alkylosis. He is stable off O2. Blood sugars are controlled on current regimen at this facility including 25 units of insulin NPH 70/25 sq QHS and sliding scale insulin , A1C was 12.4 when checked here. This patient was seen by Suleiman Monroy PA-C under the supervision of Doctor Vinny.[] - Physical Exam Vitals/I&O's: Vital Signs Temp Pulse Resp BP Pulse Ox 97.5 F L 89 16 113/67 94 12/18/18 16:20 12/18/18 16:20 12/18/18 16:20 12/18/18 16:20 12/18/18 16:20 Oxygen Flow Rate (L/min) 2 Oxygen Delivery Method Room Air Weight: 184 lb 15.485 oz Body Mass Index (BMI) 30.3 Intake and Output for Last 24 Hours 12/16/18 12/17/18 12/18/18 23:59 23:59 23:59 Intake Total 1090 / 1090 1344 / 1344 268.25 / 268.25 Output Total 2950 / 2950 1974 / 1974 900 / 900 Balance -1860 / -1860 -631 / -631 -631.75 / -631.75 General: Alert, Oriented x3, Cooperative HEENT: Atraumatic, PERRLA, EOMI, Normocephalic Neck: Supple, No JVD, Negative Carotid Bruits Lungs: Clear to auscultation, Normal air movement Cardiovascular: Regular rate, No murmurs Abdomen: Bowel Sounds Present, Soft, Non Tender Extremities: Capillary Refill Less than 3 Seconds, Edema - 2-3+ pitting edema BLE Skin: No rashes, No breakdown Musculoskeletal: No Tenderness to Palpation of Joints or Extremities Neurological: Cranial nerves II-XII grossly intact Psych/Mental Status: Normal Affect, Appropriate, Alert and oriented to time, place, person, mood and affect Laboratory Results 12/17/18 17:38: Sodium 139, Potassium 4.4, Chloride 103, Carbon Dioxide 34.0 H, Anion Gap 2 L, BUN 23 H, Creatinine 1.23, Estim Creat Clear Calc 58.35, Est GFR (MDRD) Af Amer 77, Est GFR (MDRD) Non-Af 64, BUN/Creatinine Ratio 18.7, Glucose 283 H, Calcium 8.2 L 12/17/18 17:38: Magnesium 2.2 12/17/18 18:31: POC Glucose 235 H 12/17/18 21:36: POC Glucose 329 H 12/18/18 02:35: POC Glucose 163 H 12/18/18 05:45: Sodium 140, Potassium 4.0, Chloride 104, Carbon Dioxide 34.0 H, Anion Gap 2 L, BUN 24 H, Creatinine 0.91, Estim Creat Clear Calc 78.87, Est GFR (MDRD) Af Amer 110, Est GFR (MDRD) Non-Af 91, BUN/Creatinine Ratio 26.4 H, Glucose 202 H, Calcium 8.3 L, Magnesium 2.0 12/18/18 05:45: Phosphorus 3.0 12/18/18 06:35: POC Glucose 197 H 12/18/18 11:31: POC Glucose 211 H Current Medications Acetaminophen (Tylenol) 650 mg PO Q6H PRN PRN PRN Reason: Pain Score 1-3/Temp > 100.7 F Last Admin: 12/16/18 01:51 Dose: 650 mg Documented by: Aspirin (Aspirin, Baby) 81 mg PO DAILYCM [facility] Last Admin: 12/18/18 06:37 Dose: 81 mg Documented by: Atorvastatin Calcium (Lipitor) 80 mg PO QHS [facility] Last Admin: 12/17/18 21:40 Dose: 80 mg Documented by: Carvedilol (Coreg) 3.125 mg PO BID [facility] Last Admin: 12/18/18 11:36 Dose: 3.125 mg Documented by: Dextrose (D50w Syringe) 0 gm IV X1 PRN; Protocol PRN Reason: Hypoglycemia Last Admin: 12/17/18 06:46 Dose: 25 gm Documented by: Enoxaparin Sodium (Lovenox) 40 mg SC DAILY [facility] Last Admin: 12/18/18 11:37 Dose: Not Given Documented by: Furosemide (Lasix) 40 mg IV BID@1000,1800 [facility] Last Admin: 12/18/18 11:36 Dose: 40 mg Documented by: Glucagon () 1 mg IM .X1 PRN PRN Reason: Hypoglycemia Sodium Chloride () 1,000 mls @ 15 mls/hr IV .Q48H [facility] Last Infusion: 12/18/18 11:10 Dose: Infused Documented by: Insulin Human Lispro (Humalog Kwadriannepen (Bkc)) 0 unit SC ACHS & 0200 [facility]; Protocol Last Admin: 12/18/18 17:02 Dose: 6 u Documented by: Insulin Lispro Protam/Lispro Human (Humalog Mix 75-25 Kwikpen ([facility])) 25 unit SC QHS [facility] Last Admin: 12/17/18 21:38 Dose: 25 u Documented by: Lisinopril (Zestril) 5 mg PO DAILY [facility] Last Admin: 12/18/18 06:37 Dose: 5 mg Documented by: Magnesium Hydroxide (Milk Of Magnesia) 30 ml PO DAILY PRN PRN PRN Reason: Constipation Ondansetron HCl (Zofran) 4 mg IV Q8H PRN PRN PRN Reason: NAUSEA/VOMITING Last Admin: 12/16/18 05:24 Dose: 4 mg Documented by: Pot[facility]Dur[facility] Last Admin: 12/18/18 11:36 Dose: 40 meq Documented by: Promethazine HCl (Phenergan) 12.5 mg IV Q6H PRN PRN PRN Reason: NAUSEA/VOMITING Sodium Chloride () 5 - 15 ml IV UD PRN PRN Reason: SALINE FLUSH Last Admin: 12/18/18 11:37 Dose: 10 ml Documented by: Zolpidem Tartrate (Ambien (Generic)) 5 mg PO QHS PRN PRN PRN Reason: INSOMNIA Discharge Diet: - - as directed by receiving facility Discharge Activity: - - as directed by receiving facility Home Medications: Medications to take at Discharge Aspirin [Aspirin, Baby] 81 mg PO DAILY 12/15/18 Atorvastatin Calcium 80 mg PO DAILY 12/15/18 Furosemide [Lasix] 20 mg PO DAILY 12/15/18 Insulin NPH Hum/Reg Insulin Hm [Relion Novolin 70-30 Flexpen] 40 unit SQ QHS 12/15/18 Lisinopril [Zestril] 5 mg PO DAILY 12/15/18 Metoprolol(XL)Succ [Toprol Xl (Beta Cash)] 25 mg PO DAILY 12/15/18 Primary Care Physician: Lane Cormier [Primary Care Provider] - Please follow up with your Primary Care Physician in: as directed Please Follow Up With: Ian Allen MD When: as directed Disposition: Acute care Hospital Minutes spent on discharge:: 35 Medical Necessity - Tobacco Use Smoking Status: Former smoker Meaningful Use Info Meaningful Use Diagnoses (Choose all that apply): None applicable <Dario Casillas - Last Filed: 12/19/18 07:12> Discharge Date and Diagnosis - Secondary Discharge Diagnosis Chronic Problems Chronic congestive heart failure (Chronic) History of right foot osteomyelitis (Chronic) Status post amputation of the right little toe. Hyperlipidemia (Chronic) Ischemic cardiomyopathy (Chronic) Coronary artery disease (Chronic) Status post stents. Type 2 diabetes mellitus (Chronic) Hospital Course and Treatment Summary of Care Provided: [] This patient was seen in conjunction with Suleiman POPE. I have independently interviewed and examined the patient and reviewed pertinent history, examination findings, laboratory and plan of management. I have reviewed the note and agree with the documented findings with the few additional points. In brief, patient is admitted for progressive worsening of shortness of breath for 1 week and bilateral leg edema. No chest pain. EKG shows sinus tachycardia with no acute ST changes. Troponin 0 0.205. Chest x-ray bilateral pulmonary vascular congestion small left pleural effusion. Patient is seen by superintendent board mill for acute on chronic systolic heart failure. Echo was done reported as EF 20-25% with a stage II diastolic dysfunction, severe global hypokinesis with moderately dilated LV. LA mildly enlarged. On fluid restriction, intravenous Lasix diuresis, ALLISON inhibitor. Spironolactone on hold. Patient has mildly elevated troponin consistent with non-ST elevation MO. Cardiac cath showed LAD with previous stent 80% restenosis and distal 70 to 80% stenosis. Left circumflex with previously placed stent 80% restenosis and distal 70 to 80% stenosis. Nondominant RCA 50% stenosis. Severe LV systolic dysfunction. Patient also had nonsustained V. tach on monitor tech. Hypokalemia monitor electrolytes and replace accordingly. Flight Information Expediter recommended coronary artery bypass surgery and Dr Pak was called by superintendent board mill to arrange for transfer to [facility] Hospitalist was called for acceptance of patient is attending as per cardiac surgeon recommendation. Letter on patient was transferred to [facility]. Transfer process was explained to the patient. Total time spent, exact 35 minutes on examination, review of imaging and blood test and transfer to [facility]. I have discussed my assessment with Suleiman POPE and orders have been reviewed. Subjective: Seen and examined. Patient had cardiac cath in the morning and shows multivessel coronary artery disease with restenosis of previous stents and recommended CABG. This was discussed with the patient. Tired to that, he had 2 vessel stenting, LAD and first diagonal ostial 90% as per cardiac cath 2011. - Physical Exam Vitals/I&O's: Vital Signs Temp Pulse Resp BP Pulse Ox 97.6 F L 97 20 H 110/64 93 12/18/18 19:03 12/18/18 19:03 12/18/18 19:03 12/18/18 19:03 12/18/18 19:03 Oxygen Flow Rate (L/min) 2 Oxygen Delivery Method Room Air Weight: 184 lb 15.485 oz Body Mass Index (BMI) 30.3 Intake and Output for Last 24 Hours 12/17/18 12/18/18 12/19/18 23:59 23:59 23:59 Intake Total 1344 / 1344 708.25 / 708.25 Output Total 1974 / 1974 2825 / 2825 Balance -631 / -631 -2116.75 / -2116.75 General: Alert, Oriented x3, Cooperative HEENT: Atraumatic, PERRLA, EOMI, Normocephalic Neck: Supple, No JVD, Negative Carotid Bruits Lungs: Clear to auscultation, No rhonchi, No wheeze, No rales, Diminished - Air entry is diminished in posterior lung bases Cardiovascular: Regular rate, Regular Rhythm, Normal S1, Normal S2, No murmurs Abdomen: Bowel Sounds Present, Soft, Non Tender Extremities: Capillary Refill Less than 3 Seconds, Edema Skin: No rashes, No breakdown Musculoskeletal: No Tenderness to Palpation of Joints or Extremities, Arthritic Changes Neurological: Cranial nerves II-XII grossly intact, Deep Tendon Reflexes 2+/4 and Symmetrical, Neuro grossly intact Psych/Mental Status: Normal Affect, Appropriate Laboratory Results 12/18/18 11:31: POC Glucose 211 H 12/18/18 17:01: POC Glucose 324 H Code Visit Inpatient E&M: 69864 Disch Hosp
[2018-12-18 17:16] LABS: Bedside Glucose 324 mg/dL (70-110)
--- NOTE | 2018-12-18 19:01 | NURSING ---
CALLED REPORT TO TYRA FREEMAN AND SPOKE WITH MARISA VENTURA
--- NOTE | 2018-12-18 20:30 | NURSING ---
Transport squad arrived to take pt to [facility], telemetry removed, report given. No further needs at this time. Relinquished care of pt to transport team.
== END 2018-12-18 20:45 | disposition short-term general hospital (02) | DRG 280 ==
PROVIDERS: Hospitalist; Internal Medicine Cardiovascular Disease; Admitting Provider Hospitalist; Family Provider Family Medicine; PCP Family Medicine; Visit Provider Internal Medicine
DX: I21.4 Non-ST elevation (NSTEMI) myocardial infarction (principal); I50.23 Acute on chronic systolic (congestive) heart failure; I47.2 Ventricular tachycardia; I25.810 Atherosclerosis of coronary artery bypass graft(s) without angina pectoris; I25.10 Atherosclerotic heart disease of native coronary artery without angina pectoris; I11.0 Hypertensive heart disease with heart failure; I25.5 Ischemic cardiomyopathy; E11.649 Type 2 diabetes mellitus with hypoglycemia without coma; E78.5 Hyperlipidemia, unspecified; E87.6 Hypokalemia; Z95.1 Presence of aortocoronary bypass graft; Z95.5 Presence of coronary angioplasty implant and graft; Z79.4 Long term (current) use of insulin; Z79.82 Long term (current) use of aspirin; Z79.899 Other long term (current) drug therapy; Z87.891 Personal history of nicotine dependence; Z89.421 Acquired absence of other right toe(s); Z91.19 Patient's noncompliance with other medical treatment and regimen
CPT/HCPCS: 36415; 80048; 82962; 83036; 83735; 84100; 84443; 84484; 85025; 85610; 93005; 93306; 93458; 97802; 99152; 99153; J7030; Q9957; Q9967; A4216; C1769; C1894; C8929; J1940; J2405

== ENCOUNTER 2019-04-14 10:44 | Inpatient (IN) | payer OTHER, SELFPAY ==
[2019-02-01 11:46] VITALS: BMI 33.5
[2019-04-14] VITALS (11 sets, daily range): BP systolic 117–139; BP diastolic 70–81; PULSE 86–96; RESP 16–20; TEMP 36.3–36.6; O2SAT 93–95; BMI 35.0; BMI 36.8
--- NOTE | 2019-04-14 11:08 | RAD_ITS ---
STUDY: X-RAY CHEST REASON FOR EXAM: Male, 58 years old. Shortness of breath. CABG. History of NM. TECHNIQUE: AP upright portable view. COMPARISON: None. FINDINGS: Intact sternal wires from prior CABG procedure. Mild pulmonary hypoinflation. No suspicious infiltrates. There is no demonstrated pleural abnormality. Normal size heart. Normal mediastinum and reyna. Crowding of pulmonary vasculature due to pulmonary hypoinflation. No pulmonary vascular redistribution. Normal visualized aortic arch and descending thoracic aorta. Normal visualized thoracic spine. Normal visualized ribs, clavicles, and shoulders. There is no demonstrated abnormality of the visualized soft tissue structures of the upper abdomen. RAD/Chest 1 View (Portable) IMPRESSION: No suspicious acute cardiopulmonary pathology given the limited inspiratory effort. Electronically Signed: Jad Correa MD at 12:17 EST , Service support ,
--- NOTE | 2019-04-14 11:08 | EKG12_ITS ---
Test Reason : SOB Blood Pressure : / mmHG Vent. Rate : 089 BPM Atrial Rate : 089 BPM P-R Int : 178 ms QRS Dur : 148 ms QT Int : 408 ms P-R-T Axes : 037 -67 049 degrees QTc Int : 496 ms Normal sinus rhythm Possible Left atrial enlargement Left axis deviation Right bundle branch block Septal infarct , age undetermined , cannot be excluded Inferior infarct , age undetermined Abnormal ECG Confirmed by FRANCO BURKETT, CHRISTOPHER ([id number]), editorial cartoonist ERNST OSCAR ([id number]) on 04/17/2019 8:57:44 AM Referred By: ANUSHA Confirmed By:CHRISTOPHER GAMEZ MD
--- NOTE | 2019-04-14 11:13 | ED.DCSUM_ITS ---
- ER Visit Summary Date of Service: 04/14/19 Chief Complaint: Shortness of breath History of Present Illness: The patient is a 58 M presenting with shortness of breath. He states this has been ongoing but worsened since last night. He has had increasing lower extremity swelling and increasing weight. He was seen by cardiology 1 week ago and his Bumex was increased. He states he has not had increased urination and continues to feel progressively worse. He denies chest pain. On arrival pulse ox was 82% on room air. He states the shortness of breath is worsened with exertion. He denies fever. He has had a mild cough. Denies other complaints. Physical Examination: Vitals are stable. Patient is afebrile. Alert no acute distress. Pulse ox 93% on nasal cannula. HEENT exam is unremarkable. Neck is supple. Lungs are rales at bases Heart is regular rate and rhythm. Abdomen is soft nontender nondistended. Extremities symmetric edema Skin is warm and dry. No focal neurologic deficit. Remainder of exam is unremarkable. Emergency Department Course and Treatment: EKG is sinus rate of 89, right bundle branch block. CBC shows hemoglobin 10.9. Chemistries show glucose 193, BUN 51. Troponin 0.039. Chest x-ray shows no suspicious acute cardiopulmonary pathology given the limited inspiratory effort. Due to his hypoxia and failed outpatient increasing of medications discussed with hospitalist for admission. Disposition: Admission Impression: CHF exacerbation, hypoxia This note was generated with [employer] dictation software. It may contain incorrect words, spelling, and punctuation that were not noted in review of the chart prior to signing ED Disposition - Plan for ED Patient: Referrals: Care Physician,No Primary [NON-STAFF] -
[2019-04-14 11:22] LABS: Absolute Lymphocyte Count 0.79 X10^3/uL (0.83-4.51); Absolute Neutrophil Count 5.2 X10^3/uL (2.0-7.7); Basophil# 0.06 X10^3/uL; Basophil% 0.9 % (0-1); Eosinophil# 0.14 X10^3/uL; Eosinophils% 2.1 % (0-5); Hemoglobin 10.9 g/dL (13.0-16.5); Lymphocyte # 0.79 X10^3/ul (4.0); Lymphocyte % 11.6 % (19-41); Mean Corp Hgb Conc 29.5 g/dL (32-36); Mean Corpuscular Hgb 27.5 pg (27.0-32.0); Mean Corpuscular Volume 93.2 fL (80-94); Mean Platelet Vol. 10.9 fl (6.2-12.0); Monocyte% 8.8 % (0-10); NRBC Flagged by Analyzer 0 % (0-5); Neutrophil # 5.17 X10^3/uL (2.7-7.7); Neutrophil % 76.2 % (47-70); Platelet Count 210 K/mm3 (150-450); RBC Distribution Width CV 16.1 % (11.6-14.6); RBC Distribution Width SD 55.1 fl (35.1-43.9); Red Blood Count 3.97 M/mm3 (4.6-6.2); White Blood Count 6.8 K/mm3 (4.4-11.0)
[2019-04-14 11:38] LABS: Anion Gap 1 (5-15); BUN 51 mg/dL (7-18); BUN/Creat Ratio 39.8 RATIO (10-20); Calcium,Total 8.8 mg/dL (8.5-10.1); Chloride 110 mmol/L (98-107); Creatinine, Serum 1.28 mg/dL (0.70-1.30); EST Glomerular Filtration Rate 61 mL/min (>60); Est Glom Filt Rate - Afr Amer 74 mL/min (>60); Estimated Creatinine Clearance 56.07 ml/min; Glucose 193 mg/dL (74-106); Potassium 4.4 mmol/L (3.5-5.1); Sodium Level 144 mmol/L (136-145)
[2019-04-14 12:58] LABS: BNP,B-Type NATRIURETIC PEPTIDE 888.6 pg/mL (0-100)
--- NOTE | 2019-04-14 13:09 | ECHOCS_ITS ---
Reason For Study: CHF Procedure This was a 2D Doppler, Color Flow transthoracic echocardiogram. The study was technically difficult. Contrast injection was performed. Exam performed portable in patient room. Left Ventricle Normal LV size. Severe segmental systolic dysfunction (see wall motion). The estimated ejection fraction is 20 %. Posterior-Basal: Hypokinetic. Infero-Basal: Hypokinetic. Basal inferoseptal: Hypokinetic. Mid-Anterior : Hypokinetic. Mid-Lateral : Hypokinetic. Mid-Posterior: Mildly hypokinetic. Mid-Inferior: Hypokinetic. Mid-inferoseptal : Hypokinetic. Mid-anteroseptal : Hypokinetic. [place] : Hypokinetic. Right Ventricle Mildly dilated right ventricle. Mild global right ventricular systolic dysfunction. Atria The left atrium is mildly enlarged. Normal right atrium. Hypermobile atrial septum. No doppler evidence for ASD. Mitral Valve There is no mitral annular calcification. Mild diffuse mitral valve thickening. Mitral valve doming/Hockey Sticking. Mild (1+) mitral valve insufficiency. Tricuspid Valve Normal tricuspid valve. Moderate (2+) tricuspid valve insufficiency. Right ventricular systolic pressure estimated to be 45 mmHg. Aortic Valve Trisinus/trileaflet aortic valve. Mild focal aortic valve calcification. Pulmonic Valve The pulmonic valve is not well visualized. Trivial pulmonic valve insufficiency. Great Vessels Normal sized aortic root. Pericardium/Pleural No pericardial effusion. Medication Diluted definity 2ml given slow IV push to enhance endocardial definition. MMode/2D Measurements & Calculations LVIDd: 5.0 cm IVSd: 1.2 cm Ao root diam: 2.7 cm LVIDs: 4.5 cm LVPWd: 0.73 cm RVDd: 4.6 cm FS: 10.1 % LAV(MOD-bp): 81.8 ml LA A4 area: 21.3 cm2 LA dimension(2D): 4.8 cm LAV(MOD-bp) Indexed: 39.6 ml/m2 LAV(MOD-sp2): 107.0 ml LAV(MOD-sp4): 61.7 ml RA A4 area: 16.6 cm2 Doppler Measurements & Calculations MV E max orion: 106.4 cm/sec Lat Peak E' Orion: 6.8 cm/sec Med Peak E' Orion: 5.0 cm/sec MV A max orion: 71.3 cm/sec E/E' lat: 15.7 E/E' med: 21.4 MV E/A: 1.5 Ao V2 max: 108.7 cm/sec LV V1 max: 92.1 cm/sec PA V2 max: 106.9 cm/sec Ao max P.7 mmHg LV V1 max P.4 mmHg Ao V2 mean: 77.6 cm/sec Ao mean P.6 mmHg Ao V2 VTI: 20.8 cm PI end-d orion: 140.6 cm/sec TR max orion: 302.0 cm/sec TR max P.5 mmHg Interpretation Summary The study was technically difficult. Contrast injection was performed. Severe segmental systolic dysfunction (see wall motion). The estimated ejection fraction is 20 %. Mildly dilated right ventricle. Mild global right ventricular systolic dysfunction. The left atrium is mildly enlarged. Mild diffuse mitral valve thickening. Mitral valve doming/Hockey Sticking Mild (1+) mitral valve insufficiency. Mild focal aortic valve calcification. Trivial pulmonic valve insufficiency. Right ventricular systolic pressure estimated to be 45 mmHg. Transmitral diastolic flow velocities suggest diastolic dysfunction (pseudonormal pattern). Ordering Physician: Maulik Lambert Referring Physician: [facility] Performed By: Gema Mcguire, LINDSEY, RVT
[2019-04-14 13:35] LABS: AST(SGOT) 36 U/L (15-37); Alanine Aminotransfer ALT/SGPT 29 U/L (16-61); Albumin, Serum 2.4 g/dL (3.2-5.0); Alkaline Phosphatase 116 U/L (45-117); Bilirubin, Direct 0.15 mg/dL (0.00-0.30); Globulin 4.5 g/dL (2.2-4.2); Protein, Total 6.9 g/dL (6.4-8.2)
--- NOTE | 2019-04-14 13:37 | HP.PCM_ITS ---
Problem List (1) Atherosclerosis of coronary artery of belk[place]ski heart without angina pectoris Status: Chronic (2) History of non-ST elevation myocardial infarction (NSTEMI) Status: Resolved (3) H/O coronary artery bypass surgery Status: Resolved Comment: CABG x 3 WALLACE-LAD, SVG-OM1, SVG-D1 12/31/2018 (4) History of coronary artery stent placement Status: Resolved Comment: Mid LCx and Mid LAD (5) Ischemic cardiomyopathy Status: Chronic (6) Acute on chronic combined systolic (congestive) and diastolic (congestive) heart failure Status: Acute (7) Postoperative atrial fibrillation Status: Resolved (8) Secondary pulmonary arterial hypertension Status: Chronic (9) Essential (primary) hypertension Status: Chronic (10) Hyperlipidemia Status: Chronic (11) Right bundle branch block (RBBB) Status: Chronic History of Present Illness Date of Admission: 04/14/19 Chief Complaint: Shortness of breath. The patient is a 58 year old M who presents to the Emergency Room due to shortness of breath. Patient reports shortness of breath and generalized swelling for the past several weeks to months which has worsened over the past few days. He reports difficulty lying flat due to increased shortness of breath and increased dyspnea with minimal exertion. He denies chest pain. He denies cough, fever, chills. Patient reports significant lower extremity swelling which extends up to his thighs and abdomen. Patient had CABG November 2018 at [facility]. He reports he weighed approximately 180 pounds while admitted there. His weight on admission is 228 pounds. Patient follows with Dr. Allen. He called cardiology office 1 week ago and his Bumex was increased at that time. He reports his symptoms continue to worsen. Patient states after his CABG he became unemployed and no longer has health insurance. Due to this, he switched his primary care to OR where he feels his medical conditions are not being adequately addressed. Patient states since he has not been able to work or be as active as he would like, he has felt depressed recently. However, he does not want to be on medication for depression. He has a past medical history of CAD status post stenting and CABG, ischemic cardiomyopathy, type 2 diabetes mellitus, chronic systolic CHF, hypertension, hyperlipidemia, former tobacco use. Past Medical History Past Medical History (Chronic Problems): Chronic Problems (Last Reviewed 02/01/19 @ 12:31 by Ian Allen MD) Atherosclerosis of coronary artery of belk[place]ski heart without angina pectoris ( Chronic) Ischemic cardiomyopathy (Chronic) Secondary pulmonary arterial hypertension (Chronic) Essential (primary) hypertension (Chronic) Hyperlipidemia (Chronic) Right bundle branch block (RBBB) (Chronic) Medical History: Medical History (Last Reviewed 02/01/19 @ 12:31 by Ian Allen MD) Atherosclerosis of coronary artery of belk[place]ski heart without angina pectoris (Chronic) I25.10 History of non-ST elevation myocardial infarction (NSTEMI) (Resolved) Onset Date: 12/15/18 I25.2 Ischemic cardiomyopathy (Chronic) I25.5 Acute on chronic combined systolic (congestive) and diastolic (congestive) heart failure (Chronic) I50.43 Postoperative atrial fibrillation (Resolved) Onset Date: 01/01/19 I97.89, I48.91 Secondary pulmonary arterial hypertension (Chronic) I27.21 Essential (primary) hypertension (Chronic) I10 Hyperlipidemia (Chronic) E78.5 Right bundle branch block (RBBB) (Chronic) I45.10 Osteomyelitis of foot M86.9 Status post amputation of the right little toe. Type 2 diabetes mellitus E11.9 Pleural effusion Onset Date: 01/05/19 J90 right sided Allergies No Known Allergies Allergy (Verified 04/14/19 11:05) Home Medications: Ambulatory Orders Medication Instructions Recorded Aspirin [Aspirin, Baby] 81 mg PO DAILY 12/15/18 ascorbate calcium (vitamin C) 500 500 mg PO DAILY 02/01/19 mg tablet atorvastatin 80 mg tablet 80 mg PO DAILY #90 tab 02/01/19 folic acid 1 mg tablet 1 mg PO DAILY 02/01/19 metoprolol succinate 25 mg 25 mg PO DAILY #90 tab 02/01/19 tablet,extended release 24 hr Bumetanide 4 mg PO BID 04/14/19 Insulin Lispro [Humalog] 5 unit SQ TIDCM 04/14/19 Insulin NPH Human [Humulin N Pen] 15 unit SQ BID 04/14/19 Liraglutide [Victoza] 0.6 mg SQ DAILY 04/14/19 Surgical History: Surgical History (Last Reviewed 04/14/19 @ 13:57 by Violeta Mclaughlin NP-C) H/O coronary artery bypass surgery (Resolved) Onset Date: 12/31/18 Z95.1 CABG x 3 WALLACE-LAD, SVG-OM1, SVG-D1 12/31/2018 History of coronary artery stent placement (Resolved) Onset Date: 2011 Z95.5 Mid LCx and Mid LAD History of thoracentesis Onset Date: 01/05/19 Z98.890 right sided 1250 cc Amputated toe of right foot S98.131A H/O wrist surgery Z98.890 History of left heart catheterization Onset Date: 12/18/18 Z98.890 History of left ventricular assist device Onset Date: 12/31/18 Z95.811 Impella, removed 01/03/19 Psychiatric History: No pertinent psych hx Lives: Spouse/ Significant Other Smoking Status: Former smoker Alcohol: None Drugs: None - *Family History Maternal History Items: Diabetes Paternal History Items: Stroke Review of Systems Constitutional: Denies: Chills, Fever, Weight Change HEENT: Denies: Head Aches, Sinus Congestion, Sinus Drainage Cardiovascular: Reports: Edema. Denies: Chest Pain, Light Headedness, Palpitations, Syncope Respiratory: Reports: Shortness of Breath. Denies: Cough, Sputum production, Wheezing Gastrointestinal: Reports: - - Abdominal swelling.. Denies: Abdominal Pain, Constipation, Diarrhea, Nausea, Vomiting Genitourinary: Denies: Dysuria Musculoskeletal: Denies: Joint Pain, Joint Tenderness Skin: Reports: - - Healed left lower extremity wound due to vein graft 11/2018. Denies: Rash, Wounds Neurological: Denies: Numbness, Tingling, Focal weakness Psychiatric: Reports: Depression. Denies: Anxiety, Homicidal Ideations, Suicidal Ideations Hematologic/ Lymphatic: Denies: Easy Bruising, Easy Bleeding VTE Information - Inpt Only VTE Present on Admission: No VTE Mechan Device Prophylaxis: None VTE Pharm Prophylaxis ordered?: Yes - Physical Exam Vitals/I&O's: Vital Signs Temp Pulse Resp BP Pulse Ox 97.4 F L 86 18 139/76 H 95 04/14/19 13:17 04/14/19 13:17 04/14/19 13:17 04/14/19 13:17 04/14/19 13:17 Oxygen Flow Rate (L/min) 2 Oxygen Delivery Method Nasal Cannula Weight: 228 lb 2.855 oz Body Mass Index (BMI) 36.8 General: Alert, Oriented x3, Cooperative HEENT: Atraumatic, PERRLA, EOMI, Normocephalic Neck: Supple, No JVD, Negative Carotid Bruits Lungs: Clear to auscultation, Diminished Cardiovascular: Regular rate, Regular Rhythm, Normal S1, Normal S2, No murmurs Abdomen: Bowel Sounds Present, Soft, Non Tender, Non-Distended, Obese Extremities: No clubbing, No cyanosis, Capillary Refill Less than 3 Seconds, Edema - +3 pitting edema bilateral lower extremities which extends to upper thighs and abdomen. Skin: No rashes, No breakdown, - - Healing left lower extremity wound from prior vein graft. Musculoskeletal: No Tenderness to Palpation of Joints or Extremities Neurological: Cranial nerves II-XII grossly intact, Neuro grossly intact Psych/Mental Status: Normal Affect, Appropriate Laboratory Results 04/14/19 11:05: WBC 6.8, RBC 3.97 L, Hgb 10.9 L, Hct 37.0 L, MCV 93.2, MCH 27.5, MCHC 29.5 L, RDW Std Deviation 55.1 H, RDW Coeff of Cherelle 16.1 H, Plt Count 210, MPV 10.9, Immature Gran % (Auto) 0.400, Neut % (Auto) 76.2 H, Lymph % (Auto) 11.6 L, [place] % (Auto) 8.8, Eos % (Auto) 2.1, Baso % (Auto) 0.9, Absolute Neuts (auto) 5.2, Absolute Lymphs (auto) 0.79 L, Nucleated RBC % 0 04/14/19 11:05: Sodium 144, Potassium 4.4, Chloride 110 H, Carbon Dioxide 33.0 H , Anion Gap 1 L, BUN 51 H, Creatinine 1.28, Estim Creat Clear Calc 56.07, Est GFR (MDRD) Af Amer 74, Est GFR (MDRD) Non-Af 61, BUN/Creatinine Ratio 39.8 H, Glucose 193 H, Calcium 8.8, Troponin I 0.039 04/14/19 11:05: B-Natriuretic Peptide 888.6 H 04/14/19 11:55: Total Bilirubin 0.40, Direct Bilirubin 0.15, AST 36, ALT 29, Alkaline Phosphatase 116, Total Protein 6.9, Albumin 2.4 L, Globulin 4.5 H Current Medications Acetaminophen (Tylenol) 650 mg PO Q6H PRN PRN PRN Reason: Pain Score 1-10/Temp > 100.7 F Aspirin (Aspirin, Baby) 81 mg PO DAILYCM [facility] Atorvastatin Calcium (Lipitor) 80 mg PO QHS [facility] Folic Acid (Folic Acid) 1 mg PO DAILYCM [facility] Heparin Sodium (Porcine) (Heparin Na) 5,000 unit SC Q12 [facility] Furosemide 500 mg/ N/A 50 mls @ 2 mls/hr CONT INF .Q25H [facility] Sodium Chloride () 500 mls @ 15 mls/hr IV PRN PRN PRN Reason: Blood Transfusion Sodium Chloride () 250 mls @ 15 mls/hr IV .[id number] PRN PRN Reason: Saline Flush Sodium Chloride () 250 mls @ 15 mls/hr IV .[id number] PRN PRN Reason: Additional IVPB Infusion Insulin Human Lispro (Humalog Kwikpen (Bkc)) 0 unit SC ACHS [facility]; Protocol Insulin Human NPH (Humulin N (Bkc)) 15 units SC BID [facility] Metoprolol Succinate (Toprol Xl (Beta Cash)) 25 mg PO DAILY [facility] Non-Formulary Medication (Insulin Lispro) 5 unit SQ TIDCM [facility] Nutritional Formula (Lactose Free) (Glucerna Shake) 120 ml PO 4X/DAY [facility] Ondansetron HCl (Zofran) 4 mg IV Q8H PRN PRN PRN Reason: NAUSEA/VOMITING Sodium Chloride () 10 - 40 ml IV UD PRN PRN Reason: SALINE FLUSH Assessment/Plan All Active Problems (Last Reviewed 02/01/19 @ 12:31 by Ian Allen MD) History of non-ST elevation myocardial infarction (NSTEMI) (Resolved 12/15/18) H/O coronary artery bypass surgery (Resolved 12/31/18) History of coronary artery stent placement (Resolved 2011) Acute on chronic combined systolic (congestive) and diastolic (congestive) heart failure (Acute) Postoperative atrial fibrillation (Resolved 01/01/19) 1. Acute hypoxic respiratory insufficiency secondary to acute on chronic systolic CHF/ischemic cardiomyopathy-BNP 888. Chest x-ray without acute process. Patient noted to be 82% on room air in the emergency room. Continue supplement oxygen to maintain O2 at or above 90%. Lasix drip. Strict I&O. Daily weight. Consider low-dose ALLISON inhibitor pending repeat echo. 1500 fluid restriction. Echocardiogram November 2018 demonstrated EF 43%, small pericardial effusion. 2. CAD with history of stenting and CABG- Patient underwent Impella supported triple bypass by Dr. Peres 12/31/2018. Continue aspirin, statin, beta-cash. Following with Dr. Allen. 3. Type 2 diabetes [id number] with sliding scale insulin. Continue home insulin regimen. 4. Hypertension-stable, continue metoprolol. 5. Hyperlipidemia-continue statin. 6. Former tobacco use-encouraged continued cessation. 7. Normocytic anemia-trend CBC. 8. History of postoperative atrial fibrillation-previously on Eliquis which was discontinued given no recurrence of A. fib. DVT prophylaxis-heparin subcu This patient was seen by DEWAYNE Ross under the supervision of Dr. Lambert.
[2019-04-14] MEDS: Furosemide 500 MG in Empty Viaflex 50 mL 1 EACH CONT INF (14:14)
[2019-04-14 17:16] LABS: Bedside Glucose 176 mg/dL (70-110)
[2019-04-14] MEDS: Insulin Lispro 100 UNIT/ML INSULN.PEN SC ×3 (18:18→23:02)
[2019-04-14] MEDS: Heparin Injection (Vial) 5,000 UNIT/ML VIAL 5000 UNIT SC (23:02)
[2019-04-14] MEDS: Insulin NPH Human 100 UNITS/ML PEN 15 UNITS SC (23:02)
[2019-04-14] MEDS: Glucerna Shake 120 ML LIQUID PO (23:14)
[2019-04-15] VITALS (11 sets, daily range): BP systolic 110–134; BP diastolic 71–81; PULSE 82–96; RESP 14–20; TEMP 36.6–37.2; O2SAT 92–95
[2019-04-15 01:11] LABS: Bedside Glucose 230 mg/dL (70-110)
[2019-04-15 05:59] LABS: Hematocrit 36.3 % (40-54); Hemoglobin 10.6 g/dL (13.0-16.5); Mean Corp Hgb Conc 29.2 g/dL (32-36); Mean Corpuscular Volume 92.4 fL (80-94); Mean Platelet Vol. 10.7 fl (6.2-12.0); Platelet Count 208 K/mm3 (150-450); RBC Distribution Width CV 16.1 % (11.6-14.6); RBC Distribution Width SD 54.8 fl (35.1-43.9); Red Blood Count 3.93 M/mm3 (4.6-6.2); White Blood Count 6.9 K/mm3 (4.4-11.0)
[2019-04-15 06:20] LABS: Anion Gap 5 (5-15); BUN 53 mg/dL (7-18); BUN/Creat Ratio 45.3 RATIO (10-20); Calcium,Total 8.8 mg/dL (8.5-10.1); Chloride 106 mmol/L (98-107); Creatinine, Serum 1.17 mg/dL (0.70-1.30); EST Glomerular Filtration Rate 68 mL/min (>60); Est Glom Filt Rate - Afr Amer 82 mL/min (>60); Estimated Creatinine Clearance 61.35 ml/min; Glucose 178 mg/dL (74-106); Potassium 4.3 mmol/L (3.5-5.1); Sodium Level 144 mmol/L (136-145)
--- NOTE | 2019-04-15 07:29 | NURSING ---
Pt seems depressed with/frustrated about hospitalizations and health. Pt made a statement about can't keep going like this.
[2019-04-15] MEDS: Folic Acid 1 MG Tablet PO (08:09)
[2019-04-15] MEDS: Aspirin 81 MG TAB.CHEW PO (08:09)
[2019-04-15] MEDS: Metoprolol(XL)Succ 25 MG Tablet PO (08:09)
[2019-04-15] MEDS: Heparin Injection (Vial) 5,000 UNIT/ML VIAL 5000 UNIT SC ×2 (08:09→21:46)
[2019-04-15] MEDS: Insulin NPH Human 100 UNITS/ML PEN 15 UNITS SC ×2 (08:11→21:45)
[2019-04-15] MEDS: Insulin Lispro 100 UNIT/ML INSULN.PEN SC ×7 (08:11→21:46)
--- NOTE | 2019-04-15 09:01 | NURSING ---
wound photo: left medial thigh
--- NOTE | 2019-04-15 09:02 | NURSING ---
wound photo: left lower leg
[2019-04-15] MEDS: Furosemide 500 MG in Empty Viaflex 50 mL 1 EACH CONT INF (09:05)
[2019-04-15 11:25] LABS: Bedside Glucose 195 mg/dL (70-110)
--- NOTE | 2019-04-15 11:51 | CASEMGMT ---
Clinicals faxed to [place] [facility] at this time. Kristen CUNNINGHAM CM
--- NOTE | 2019-04-15 13:26 | CASEMGMT ---
MARISA LAU assessment: Face to Face with patient for initial transition planning/care coordination assessment. MARISA LAU introduced self and role at [facility], pt voices understanding and consents to assessment at this time. Pt is sitting up in bed in no distress at this time. Pt is A/Ox4 at this time and answers all questions appropriately at this time. Care providers, pharmacy, and demographics verified at this time. Presentation: SOB, intermittent since open heart surgery in december at [facility]-pt states worse last pm. Sats 86% initially w/ exertion. 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 pt states makes too much for [facility] at this time. Prescription Benefit: [place] Living Will/HPOA: Pt states is 'working on' LW/HPOA and declines info/resources at this time. LNOK: Eliane Butler, ; Ashley Butler, daughter Living Arrangements: Pt states lives with in 2 story home and states no concerns at home at this time. Pt states is independent with ADL's. Transportation: Pt states drives self and states no transportation concerns at this time. DME/HHC: Pt states has a cane, walker, and shower chair but does not normally use. Pt states no need for any further DME at this time. Pt states has had HHC s/p CABG but declines SNF in the past. Pt states no concerns with going home at time of discharge. Pt is currently unemployed. Pt states does not smoke cigarettes and drinks 'very little' ETOH. Pt states no further concerns/needs at this time. CM to follow for any further discharge planning/needs. Advised pt to ask for CM if any further questions/concerns/needs arise, voices understanding. Pt Goal: Home Plan: Home [place] MARISA LAU
[2019-04-15 16:46] LABS: Bedside Glucose 157 mg/dL (70-110)
[2019-04-15] MEDS: Lisinopril 10 MG Tablet PO (17:42)
--- NOTE | 2019-04-15 20:05 | PN_ITS ---
Subjective: Patient was seen and examined today, his echocardiogram was completed later today and it showed a severely reduced ejection fraction of 20%. I talked with Dr. Amor by phone, I did not have him consulted, he looked over the patient's medical record has he is a patient of Dr. jeff for [facility] and the patient underwent coronary artery bypass in December of last year at [facility], the patient had a low ejection fraction prior to his coronary artery bypass, after his coronary artery bypass, patient again had a low ejection fraction in the 20s and the patient was on an Impella device for a few days, this was then discontinued and the patient's ejection fraction was calculated is being 43%. Dr. Amor advised that the patient undergo a repeat cardiac catheterization but he advised the patient be sent to another facility to have it done as it was a high risk procedure. I called [facility] to see if they would accept the patient, they would accept the patient but they needed approval from the [place] hospital system that the patient could be transferred there, at this time of day it was impossible to get a hold of anybody at the [place] to approve this transfer and so the patient remains here tonight. I have added lisinopril to his medical regimen, patient remains on a Lasix drip at this time but I am going to lower the dosage to 10 mg/h as he is put out a great deal of urine over the past 48 hours. Patient is currently on room air. I spent some time talking with the patient and the patient's daughter by phone today to update his daughter on his medical condition, I did not talk to her after it became evident the patient would not be transferred to [facility] however, I had nursing let the patient know this evening that he would not be transferred tonight and that his transfer would be pending on approval by the [place] tomorrow. - Physical Exam Vitals/I&O's: Vital Signs Temp Pulse Resp BP Pulse Ox 98.0 F 93 20 H 110/73 94 04/15/19 13:49 04/15/19 19:17 04/15/19 13:49 04/15/19 13:49 04/15/19 13:49 Oxygen Flow Rate (L/min) 2 Oxygen Delivery Method Nasal Cannula Weight: 101.3 kg Body Mass Index (BMI) 36.8 Intake and Output for Last 24 Hours 04/13/19 04/14/19 04/15/19 23:59 23:59 23:59 Intake Total 510 / 510 707.7 / 707.7 Output Total 2074 / 2074 3700 / 3700 Balance -1565 / -1565 -2992.3 / -2992.3 General: Alert, Oriented x3, Cooperative, No apparent distress, Well developed, Well nourished HEENT: Atraumatic, PERRLA, EOMI, Normocephalic Oral: Moist Mucosa Neck: Supple, No JVD, Negative Carotid Bruits, Trachea Midline, Thyroid Normal Size and Texture Lungs: Clear to auscultation, Normal air movement, No rhonchi, No wheeze, No rales Cardiovascular: Regular rate, Regular Rhythm, Normal S1, Normal S2, No murmurs, PMI Normal, No rub noted, No Gallop Abdomen: Bowel Sounds Present, Soft, Non Tender, Non-Distended Extremities: Capillary Refill Less than 3 Seconds, Edema - +2 to 3 mm pitting edema is noted bilaterally in the lower legs Skin: No rashes, - - Patient has healing surgical wounds to his left mocnada and left inner thigh Musculoskeletal: No Tenderness to Palpation of Joints or Extremities Neurological: Cranial nerves II-XII grossly intact, Neuro grossly intact, Muscle tone normal, Sensory exam intact to light touch and pain Psych/Mental Status: Normal Affect, Appropriate, Alert and oriented to time, place, person, mood and affect Laboratory Results 04/14/19 23:01: POC Glucose 230 H 04/15/19 05:40: Sodium 144, Potassium 4.3, Chloride 106, Carbon Dioxide 33.0 H, Anion Gap 5, BUN 53 H, Creatinine 1.17, Estim Creat Clear Calc 61.35, Est GFR (MDRD) Af Amer 82, Est GFR (MDRD) Non-Af 68, BUN/Creatinine Ratio 45.3 H, Glucose 178 H, Calcium 8.8 04/15/19 05:40: WBC 6.9, RBC 3.93 L, Hgb 10.6 L, Hct 36.3 L, MCV 92.4, MCH 27.0, MCHC 29.2 L, RDW Std Deviation 54.8 H, RDW Coeff of Cherelle 16.1 H, Plt Count 208, MPV 10.7 02/17/20 11:13: POC Glucose 195 H 04/15/19 16:38: POC Glucose 157 H Current Medications Acetaminophen (Tylenol) 650 mg PO Q6H PRN PRN PRN Reason: Pain Score 1-10/Temp > 100.7 F Aspirin (Aspirin, Baby) 81 mg PO DAILYCM [facility] Last Admin: 04/15/19 08:09 Dose: 81 mg Documented by: Atorvastatin Calcium (Lipitor) 80 mg PO QHS [facility] Last Admin: 04/14/19 23:05 Dose: Not Given Documented by: Folic Acid (Folic Acid) 1 mg PO DAILYCM [facility] Last Admin: 04/15/19 08:09 Dose: 1 mg Documented by: Heparin Sodium (Porcine) (Heparin Na) 5,000 unit SC Q12 [facility] Last Admin: 04/15/19 08:09 Dose: 5,000 unit Documented by: Furosemide 500 mg/ N/A 50 mls @ 2 mls/hr CONT INF .Q25H [facility] Last Admin: 04/15/19 11:37 Dose: Not Given Documented by: Sodium Chloride () 500 mls @ 15 mls/hr IV PRN PRN PRN Reason: Blood Transfusion Sodium Chloride () 250 mls @ 15 mls/hr IV .[id number] PRN PRN Reason: Saline Flush Sodium Chloride () 250 mls @ 15 mls/hr IV .[id number] PRN PRN Reason: Additional IVPB Infusion Insulin Human Lispro (Humalog Kwikpen (Bkc)) 5 unit SC 0800,1200,1700 [facility] Last Admin: 04/15/19 17:23 Dose: 5 unit Documented by: Insulin Human Lispro (Humalog Kwikpen (Bkc)) 0 unit SC ACHS [facility]; Protocol Last Admin: 04/15/19 17:24 Dose: 3 units Documented by: Insulin Human NPH (Humulin N (Bkc)) 15 units SC BID [facility] Last Admin: 04/15/19 08:11 Dose: 15 u Documented by: Lisinopril (Zestril) 10 mg PO DAILY [facility] Metoprolol Succinate (Toprol Xl (Beta Cash)) 25 mg PO DAILY [facility] Last Admin: 04/15/19 08:09 Dose: 25 mg Documented by: Nutritional Formula (Lactose Free) (Glucerna Shake) 120 ml PO 4X/DAY [facility] Last Admin: 04/15/19 17:38 Dose: Not Given Documented by: Ondansetron HCl (Zofran) 4 mg IV Q8H PRN PRN PRN Reason: NAUSEA/VOMITING Sodium Chloride () 10 - 40 ml IV UD PRN PRN Reason: SALINE FLUSH Medical Necessity - Tobacco Use Smoking Status: Former smoker Assessment/Plan All Active Problems (Last Reviewed 02/01/19 @ 12:31 by Ian Allen MD) History of non-ST elevation myocardial infarction (NSTEMI) (Resolved 12/15/18) H/O coronary artery bypass surgery (Resolved 12/31/18) History of coronary artery stent placement (Resolved 2011) Acute on chronic combined systolic (congestive) and diastolic (congestive) heart failure (Acute) Postoperative atrial fibrillation (Resolved 01/01/19) #1 acute on chronic systolic congestive heart failure-EF approximately 20%- again, the [facility] will have to be [facility] tomorrow to allow the patient to be transferred to [facility], I talked to the hospitalist service earlier tonight and they initially accepted the patient, I assume that the patient's admission will have to be navigated through the hospitalist system with cardiology to consult when he gets to [facility]. Patient will continue IV Lasix drip at 10 mg/h I have added an ALLISON inhibitor, patient is already on a beta-cash. Again, occlusive coronary artery disease will have to be ruled out and patient will need a cardiac catheterization at another institution. #2 coronary artery disease #3 ischemic cardiomyopathy with reduced ejection fraction #4 type 2 diabetes #5 hyperlipidemia #6 pulmonary hypertension Code Visit Inpatient E&M: 59296 Subs Hosp L2
[2019-04-15] MEDS: Glucerna Shake 120 ML LIQUID PO (21:42)
[2019-04-15] MEDS: Atorvastatin Calcium 80 MG Tablet PO (21:49)
[2019-04-15 22:00] LABS: Bedside Glucose 201 mg/dL (70-110)
[2019-04-16] VITALS (13 sets, daily range): BP systolic 112–135; BP diastolic 61–87; PULSE 83–92; RESP 17–18; TEMP 36.4–36.8; O2SAT 92–97
[2019-04-16 06:34] LABS: Anion Gap 3 (5-15); BUN 49 mg/dL (7-18); BUN/Creat Ratio 40.5 RATIO (10-20); Calcium,Total 8.7 mg/dL (8.5-10.1); Chloride 103 mmol/L (98-107); Creatinine, Serum 1.21 mg/dL (0.70-1.30); EST Glomerular Filtration Rate 65 mL/min (>60); Est Glom Filt Rate - Afr Amer 79 mL/min (>60); Estimated Creatinine Clearance 59.32 ml/min; Glucose 150 mg/dL (74-106); Potassium 3.7 mmol/L (3.5-5.1); Sodium Level 143 mmol/L (136-145)
[2019-04-16 06:45] LABS: Bedside Glucose 148 mg/dL (70-110)
[2019-04-16] MEDS: Insulin NPH Human 100 UNITS/ML PEN 15 UNITS SC ×2 (08:16→22:12)
[2019-04-16] MEDS: Insulin Lispro 100 UNIT/ML INSULN.PEN SC ×4 (08:16→22:11)
[2019-04-16] MEDS: Folic Acid 1 MG Tablet PO (08:31)
[2019-04-16] MEDS: Heparin Injection (Vial) 5,000 UNIT/ML VIAL 5000 UNIT SC ×2 (08:31→22:10)
[2019-04-16] MEDS: Aspirin 81 MG TAB.CHEW PO (08:31)
[2019-04-16] MEDS: Metoprolol(XL)Succ 25 MG Tablet PO (08:31)
[2019-04-16] MEDS: Lisinopril 10 MG Tablet PO ×2 (08:31→22:09)
--- NOTE | 2019-04-16 09:26 | CASEMGMT ---
Addendum entered by Chastity Vasquez 04/16/19 14:51: [place] [address]. Kristen RN CM Addendum entered by Chastity Vasquez 04/16/19 14:36: This RN CM has still not heard back from Traci at [facility] at this time and was able to reach her via phone at this time. Kristen RN CM Addendum entered by Chastity Vasquez 04/16/19 11:03: This RN CM had spoken with pt about transferring to [place] and pt did not decline but did state that he would prefer [facility] as that is where his previous CABG was done but pt did have commercial insurance also at this time and pt only has [facility] at this time. This RN CM then spoke with Traci at the [facility] and she is updated on pt at this time. She states that pt has to agree to be transferred to [place] at this time but she also states that there are no PCU beds available there at this time. She states that pt does have travel benefits. This RN CM back to room to discuss with pt/family and pt does agree to [facility] as per his , 'you don't have a choice as you have no other coverage.' Message left with Traci at [facility] in regards to same at this time. This RN CM awaiting call back from [facility] at this time. Kristen RN SID Original Note: Per Pablo, PCU charge, the hospitalist would like to transfer pt for further cardiac work up as he had CABG in December 2018 at [facility] and his current EF is 20%. Pt only has [facility] [place] at this time so message left with Traci at [facility] in regards to the same at this time with urgency for her to call this RN CM back regarding same. Updated clinicals faxed to [facility] prior to call. This RN CM awaiting call back from Traci at this time to advise on transfer. Kristen CUNNINGHAM CM
[2019-04-16 11:55] LABS: Bedside Glucose 103 mg/dL (70-110)
[2019-04-16] MEDS: Furosemide 500 MG in Empty Viaflex 50 mL 1 EACH CONT INF (13:18)
[2019-04-16] MEDS: 0.9% Saline Lock 10 ML Syringe IV (13:18)
--- NOTE | 2019-04-16 14:47 | PN_ITS ---
Reason for Visit: No shortness of breath. Anxious to be transferred. Subjective: CHF Vitals/I&O's: Vital Signs Temp Pulse Resp BP Pulse Ox 36.4 C L 83 18 123/75 H 94 04/16/19 14:20 04/16/19 14:20 04/16/19 14:20 04/16/19 14:20 04/16/19 14:25 Oxygen Flow Rate (L/min) 2 Oxygen Delivery Method Room Air Weight: 99.2 kg Body Mass Index (BMI) 36.8 Intake and Output for Last 24 Hours 04/14/19 04/15/19 04/16/19 23:59 23:59 23:59 Intake Total 510 / 510 733.03 / 733.03 884.85 / 884.85 Output Total 5 / 2075 3700 / 3700 3800 / 3800 Balance -1565 / -1565 -2966.97 / -2966.97 -2915.15 / -2915.15 General: Alert, No apparent distress HEENT: Atraumatic, Normocephalic Oral: Moist Mucosa, No Gingival or Mucosal Lesions/ Ulcerations Neck: No Nodes, Trachea Midline Lungs: Clear to auscultation, Normal air movement, No rhonchi, No wheeze, No rales Cardiovascular: Regular rate, Regular Rhythm, Normal S1, Normal S2, No murmurs Abdomen: Bowel Sounds Present, Soft, Non Tender, Non-Distended, No Hepato- splenomegaly Extremities: Edema - right greater than left. Skin: No rashes, No breakdown Laboratory Results 04/15/19 16:38: POC Glucose 157 H 04/15/19 21:38: POC Glucose 201 H 04/16/19 05:53: Sodium 143, Potassium 3.7, Chloride 103, Carbon Dioxide 37.0 H, Anion Gap 3 L, BUN 49 H, Creatinine 1.21, Estim Creat Clear Calc 59.32, Est GFR (MDRD) Af Amer 79, Est GFR (MDRD) Non-Af 65, BUN/Creatinine Ratio 40.5 H, Glucose 150 H, Calcium 8.7 04/16/19 06:38: POC Glucose 148 H 04/16/19 11:47: POC Glucose 103 Current Medications Acetaminophen (Tylenol) 650 mg PO Q6H PRN PRN PRN Reason: Pain Score 1-10/Temp > 100.7 F Aspirin (Aspirin, Baby) 81 mg PO DAILYCM [facility] Last Admin: 04/16/19 08:31 Dose: 81 mg Documented by: Atorvastatin Calcium (Lipitor) 80 mg PO QHS [facility] Last Admin: 04/15/19 21:49 Dose: 80 mg Documented by: Folic Acid (Folic Acid) 1 mg PO DAILYCM [facility] Last Admin: 04/16/19 08:31 Dose: 1 mg Documented by: Heparin Sodium (Porcine) (Heparin Na) 5,000 unit SC Q12 [facility] Last Admin: 04/16/19 08:31 Dose: 5,000 unit Documented by: Furosemide 500 mg/ N/A 50 mls @ 1 mls/hr CONT INF .Q50H [facility] Last Admin: 04/16/19 13:18 Dose: 10 mg/hr, 1 mls/hr Documented by: Sodium Chloride () 500 mls @ 15 mls/hr IV PRN PRN PRN Reason: Blood Transfusion Sodium Chloride () 250 mls @ 15 mls/hr IV .[id number] PRN PRN Reason: Saline Flush Sodium Chloride () 250 mls @ 15 mls/hr IV .[id number] PRN PRN Reason: Additional IVPB Infusion Insulin Human Lispro (Humalog Kwikpen (Bkc)) 5 unit SC 0800,1200,1700 [facility] Last Admin: 04/16/19 12:16 Dose: 5 unit Documented by: Insulin Human Lispro (Humalog Kwikpen (Bkc)) 0 unit SC ACHS [facility]; Protocol Last Admin: 04/16/19 11:47 Dose: Not Given Documented by: Insulin Human NPH (Humulin N (Bkc)) 15 units SC BID [facility] Last Admin: 04/16/19 08:16 Dose: 15 u Documented by: Lisinopril (Zestril) 10 mg PO DAILY [facility] Last Admin: 04/16/19 08:31 Dose: 10 mg Documented by: Metoprolol Succinate (Toprol Xl (Beta Cash)) 25 mg PO DAILY [facility] Last Admin: 04/16/19 08:31 Dose: 25 mg Documented by: Nutritional Formula (Lactose Free) (Glucerna Shake) 120 ml PO 4X/DAY [facility] Last Admin: 04/16/19 13:02 Dose: Not Given Documented by: Ondansetron HCl (Zofran) 4 mg IV Q8H PRN PRN PRN Reason: NAUSEA/VOMITING Sodium Chloride () 10 - 40 ml IV UD PRN PRN Reason: SALINE FLUSH Last Admin: 04/16/19 13:18 Dose: 10 ml Documented by: STROKE Vital Signs/Narrative: Vital Signs Temp Pulse Resp BP Pulse Ox 04/16/19 14:25 94 04/16/19 14:20 36.4 C L 83 18 123/75 H 97 Medical Necessity - Tobacco Use Smoking Status: Former smoker Assessment/Plan All Active Problems (Last Reviewed 02/01/19 @ 12:31 by Ian Allen MD) History of non-ST elevation myocardial infarction (NSTEMI) (Resolved 12/15/18) H/O coronary artery bypass surgery (Resolved 12/31/18) History of coronary artery stent placement (Resolved 2011) Acute on chronic combined systolic (congestive) and diastolic (congestive) heart failure (Acute) Postoperative atrial fibrillation (Resolved 01/01/19) Assessment: 1. acute HFrEF 2. ischemic cardiomyopathy 3. acute hypoxic respiratory insufficiency, now on room air 4. chronic conditions: DM2, HTN, HLP, anemia, h/o post-op afib Plan 1. Given patient's complexity, patient needs evaluation at tertiary facility for a possible cardiac catheterization, which would be high-risk. 2. continue furosemide gtt 3. lisinopril 4. metoprolol tartrate 5. consult cardiology 6. VTE proph: SQ heparin [facility] not returning [facility] so that we could transfer. Unfortunately, patient will need to remain here until we get approval from the [facility] for the patient to be transferred. Either to [facility], [facility] or another facility approved by the [facility]. Fortunately, the patient is stable. DW family at bedside. Code Visit Inpatient E&M: 13636 Subs Hosp L2
[2019-04-16 17:16] LABS: Bedside Glucose 134 mg/dL (70-110)
--- NOTE | 2019-04-16 17:22 | PCM.CONS.C ---
Problem List (1) Atherosclerosis of coronary artery of [place] heart without angina pectoris Status: Chronic (2) History of coronary artery stent placement Status: Resolved Comment: Mid LCx and Mid LAD (3) H/O coronary artery bypass surgery Status: Resolved Comment: CABG x 3 WALLACE-LAD, SVG-OM1, SVG-D1 12/31/2018 (4) Ischemic cardiomyopathy Status: Chronic (5) CHF (congestive heart failure) Status: Acute Qualifiers: Heart failure type: systolic Heart failure chronicity: acute on chronic Qualified Code(s): I50.23 - Acute on chronic systolic (congestive) heart failure (6) Postoperative atrial fibrillation Status: Resolved (7) Hyperlipidemia Status: Chronic (8) Essential (primary) hypertension Status: Chronic Reason for Consult Date of Consultation: 04/16/19 History of Present Illness: The patient is a 58 year [id number]-ogo white male with a past cardiovascular history which is included CAD, PCI, non-ST segment elevation [place], ischemic mediated cardiomyopathy, CABG-Impella assisted, postoperative paroxysmal atrial fibrillation, postoperative pleural effusion requiring thoracentesis, postoperative anemia requiring PRBCs, superimposed upon hyperlipidemia and hypertension who now presents for concerns of fatigue, shortness of breath/dyspnea/orthopnea, and lower extremity peripheral pitting edema involving the thighs concerning for acute on chronic systolic mediated CHF. The patient states that he has been progressively becoming more tired and fatigued and more short of breath and dyspneic. He states he cannot lie flat and sleep at night due to his concerns of shortness of breath and dyspnea. He has been noticing lower extremity edema involving his feet, ankles, calves, and thighs. He also feels somewhat full around the abdomen. He denies any ongoing chest discomfort and states he has not noted any obvious palpitations nor has he had any near-syncope or syncope. He presented to the hospital based upon the aforementioned concerns. His troponin I level was negative. His cardiac rhythm was sinus rhythm. His BNP level was elevated. A transthoracic echocardiogram was subsequently performed and is as noted below. He was noted to have a chest x-ray that suggested increased pulmonary vascularity. He was diagnosed with acute on chronic systolic mediated CHF. Based upon his complex cardiovascular history and previous cardiovascular invasive studies/interventional studies/surgical studies requiring support with either intra-aortic balloon pump or Impella assisted devices he was recommended for transfer to a tertiary care center for further evaluation with repeat diagnostic cardiac catheterization. He is under the care of the [facility] and is pending acceptance at their facility or approval to be transferred to a non-[facility] center. In the interim cardiology has been consulted to assist with his ongoing evaluation and care. [] Past Medical History Allergies/Adverse Reactions: Allergies No Known Allergies Allergy (Verified 04/14/19 11:05) Home Medications: Ambulatory Orders Medication Instructions Recorded Aspirin [Aspirin, Baby] 81 mg PO DAILY 12/15/18 ascorbate calcium (vitamin C) 500 500 mg PO DAILY 02/01/19 mg tablet atorvastatin 80 mg tablet 80 mg PO DAILY #90 tab 02/01/19 folic acid 1 mg tablet 1 mg PO DAILY 02/01/19 metoprolol succinate 25 mg 25 mg PO DAILY #90 tab 02/01/19 tablet,extended release 24 hr Bumetanide 4 mg PO BID 04/14/19 Insulin Lispro [Humalog] 5 unit SQ TIDCM 04/14/19 Insulin NPH Human [Humulin N Pen] 15 unit SQ BID 04/14/19 Liraglutide [Victoza] 0.6 mg SQ DAILY 04/14/19 Past Medical History (Chronic Problems): Chronic Problems (Last Reviewed 02/01/19 @ 12:31 by Ian Allen MD) Atherosclerosis of coronary artery of [place] heart without angina pectoris (Chronic) Ischemic cardiomyopathy (Chronic) Secondary pulmonary arterial hypertension (Chronic) Essential (primary) hypertension (Chronic) Hyperlipidemia (Chronic) Right bundle branch block (RBBB) (Chronic) Surgical History: - - Amputation of the right little, wrist surgery. Cardiac stents. Psychiatric History: No pertinent psych hx - *Family History Maternal History Items: Diabetes Paternal History Items: Stroke Lives: Spouse/ Significant Other Smoking Status: Former smoker Alcohol: None Drugs: None Review of Systems - Review of Systems General: Reports: Fatigue. Denies: Fever, Night Sweats Cardiovascular: Reports: Shortness of Breath, Shortness of Breath at Rest, Orthopnea, PND, Peripheral Edema. Denies: Chest Discomfort, Palpitations, Lightheadedness, Dizziness, Near Syncope, Syncope Respiratory: Reports: Shortness of Breath. Denies: Cough, Sputum Production, Hemoptysis Gastrointestinal: Denies: Hematemesis, Hematochezia, Melena Genitourinary: Denies: Dysuria, Hematuria Skin: Denies: Rash Subjectve: This is a 58-year-old white male appears to be resting comfortably at the moment in no acute distress. Objective: Vital Signs Temp Pulse Resp BP Pulse Ox 98.1 F 91 18 135/87 H 92 04/16/19 17:00 04/16/19 17:00 04/16/19 17:00 04/16/19 17:00 04/16/19 17:00 Oxygen Flow Rate (L/min) 2 Oxygen Delivery Method Room Air Weight: 218 lb 11.177 oz Body Mass Index (BMI) 36.8 Intake and Output for Last 24 Hours 04/14/19 04/15/19 04/16/19 23:59 23:59 23:59 Intake Total 510 / 510 733.03 / 733.03 884.85 / 884.85 Output Total 2075 / 2075 3700 / 3700 3800 / 3800 Balance -1565 / -1565 -2966.97 / -2966.97 -2915.15 / -2915.15 General: Awake, Alert, Oriented x 3, Cooperative, No Acute Distress HEENT: Atraumatic, Normocephalic, PERRL, EOMI, Sclera Non Icteric Oral: Moist Mucosa Neck: Supple, Good ROM, No JVD Lungs: Diminished Devaughn Bases Cardiovascular: Regular Rhythm, Normal S1, Normal S2 Vascular: No Carotid Bruits Abdomen: Bowel Sounds Present, Soft, Non Tender, Distended Extremities: Severe RLE Edema, Severe LLE Edema Psych/Mental Status: Appropriate 04/16/19 05:53: Sodium 143, Potassium 3.7, Chloride 103, Carbon Dioxide 37.0 H, Anion Gap 3 L, BUN 49 H, Creatinine 1.21, Est GFR (MDRD) Af Amer 79, Est GFR (MDRD) Non-Af 65, BUN/Creatinine Ratio 40.5 H, Glucose 150 H, Calcium 8.7 Rhythm: Sinus rhythm EKG: None available for review at this time ECHO: Interpretation Summary The study was technically difficult. Contrast injection was performed. Severe segmental systolic dysfunction (see wall motion). The estimated ejection fraction is 20 %. Mildly dilated right ventricle. Mild global right ventricular systolic dysfunction. The left atrium is mildly enlarged. Mild diffuse mitral valve thickening. Mitral valve doming/Hockey Sticking Mild (1+) mitral valve insufficiency. Mild focal aortic valve calcification. Trivial pulmonic valve insufficiency. Right ventricular systolic pressure estimated to be 45 mmHg. Transmitral diastolic flow velocities suggest diastolic dysfunction (pseudonormal pattern). Cardiac Cath: 12-18-18 CORONARY ANGIOGRAPHY DOMINANCE: Left Dominant LEFT HEART ASSESSMENT Left Ventricular Ejection Fraction: by LV Gram 20 % Global Hypokinesis - Severe Depressed Left Ventricular systolic function LEFT MAIN: Mild calcification, Mild luminal irregularities LEFT ANTERIOR DESCENDING ARTERY: MID LAD: Instent restenosis 80 % DISTAL LAD: 80 irregular % Stenosis CIRCUMFLEX ARTERY: MID CIRC: Instent restenosis 90 % DISTAL CIRC: 90 % Stenosis RAMUS: Mild luminal irregularities less than 30% RIGHT CORONARY ARTERY: PROX RCA: 50 % Stenosis PCI: Per past cardiovascular consultation: 2012: PCI of the LAD/diagonal branch system and PCI of the LCx system CT Surgery: 12-31-18: [facility]: Impella assisted CABG with a WALLACE to the LAD, SVG to the diagonal branch, and SVG to the OM CXR: Preliminary evaluation: Portable chest x-ray: Question increase of cardiac silhouette size; increased pulmonary vascularity; please see official report Assessment/Plan 1. CAD status post PCI-remote status post CABG-recent The patient does have an extensive history of underlying CAD requiring revascularization therapy as noted above. The present time he is without symptoms of classic angina pectoris. His initial troponin I level was negative. He will need to continue medical therapy for his underlying CAD process. Ideally this would include agent such as aspirin, nitrates as needed, beta-blockers, lipid-lowering agents, etc. 2. Ischemic mediated cardiomyopathy The patient does have a history of an ischemic mediated cardiomyopathy. Based upon review of his previous medical records available for review it appears he has had diminished LV systolic function with question of transient improvement in his LV systolic function immediately post CABG and now with findings demonstrating significantly diminished LV systolic function again. At the present time he will continue medical therapy. This could include agents such as nitrates, beta-blockers, diuretics, and afterload reducing agents. There is a concern as to whether or not the patient has had progression of his [place] vessel disease process and/or early graft vessel disease. Thus he has been recommended for transfer back to a tertiary care center for reevaluation in the cardiac catheterization laboratory. He is pending transfer at this time. 3. Acute on chronic systolic mediated CHF The patient does have findings of acute on chronic systolic mediated CHF. This is thought secondary to his ischemic cardiomyopathy secondary to his underlying coronary artery disease process. At the present time he is being followed. He is being treated medically. This includes IV diuretics. Hopefully this will help with his volume status that which will allow him to undergo a future diagnostic cardiac catheterization. 4. Postoperative paroxysmal atrial fibrillation At the moment he remains in sinus rhythm. He will continue medical management as deemed appropriate. 5. Hyperlipidemia He should continue risk factor evaluation and care/medical therapy. 6. Hypertension His blood pressure should be followed and his medications can be adjusted as needed. Comment: The patient does have complex cardiovascular disease and has required, as noted above, during his invasive/interventional/surgical procedures the assistance of intra-aortic balloon pumps and will Impella type devices. Thus it was felt based upon that history, if he did require repeat diagnostic cardiac catheterization and potentially catheter based revascularization procedure, that this be performed at a tertiary care center. The patient was agreeable to this approach and is pending transfer to the [facility] or a non-[facility] tertiary care center. Comment: The patient's case has been discussed and reviewed with the patient as well as Dr. Lambert and Dr. Fitch. This note was generated using a voice recognition system and there may be incorrect words, spelling or punctuation that were not noted when reviewing the office note prior to saving.
[2019-04-16] MEDS: Glucerna Shake 120 ML LIQUID PO (22:08)
[2019-04-16] MEDS: Atorvastatin Calcium 80 MG Tablet PO (22:09)
[2019-04-16] MEDS: Isosorbide DN 10 MG Tablet PO (22:09)
[2019-04-16 22:26] LABS: Bedside Glucose 174 mg/dL (70-110)
[2019-04-17] VITALS (10 sets, daily range): BP systolic 93–131; BP diastolic 48–79; PULSE 83–102; RESP 17–18; TEMP 36.3–36.9; O2SAT 92–97
[2019-04-17] MEDS: Isosorbide DN 10 MG Tablet PO ×3 (05:34→21:34)
[2019-04-17 07:08] LABS: Anion Gap 2 (5-15); BUN 41 mg/dL (7-18); BUN/Creat Ratio 32.8 RATIO (10-20); Calcium,Total 8.4 mg/dL (8.5-10.1); Chloride 102 mmol/L (98-107); Creatinine, Serum 1.25 mg/dL (0.70-1.30); EST Glomerular Filtration Rate 63 mL/min (>60); Est Glom Filt Rate - Afr Amer 76 mL/min (>60); Estimated Creatinine Clearance 57.42 ml/min; Glucose 163 mg/dL (74-106); Potassium 3.7 mmol/L (3.5-5.1); Sodium Level 143 mmol/L (136-145)
[2019-04-17] MEDS: Insulin Lispro 100 UNIT/ML INSULN.PEN SC ×6 (08:25→21:32)
[2019-04-17] MEDS: Insulin NPH Human 100 UNITS/ML PEN 15 UNITS SC ×2 (08:28→21:33)
[2019-04-17 08:35] LABS: Bedside Glucose 164 mg/dL (70-110)
[2019-04-17] MEDS: Folic Acid 1 MG Tablet PO (09:17)
[2019-04-17] MEDS: Aspirin 81 MG TAB.CHEW PO (09:17)
[2019-04-17] MEDS: Glucerna Shake 120 ML LIQUID PO ×4 (09:18→21:44)
[2019-04-17] MEDS: Heparin Injection (Vial) 5,000 UNIT/ML VIAL 5000 UNIT SC ×2 (09:18→21:32)
--- NOTE | 2019-04-17 09:56 | CASEMGMT ---
Addendum entered by Chastity Vasquez 04/17/19 11:46: Cortext [facility] and will contact floor when transport set up. Dr. Fitch, Jad-U charge, and pt updated at this time, voice understanding. This RN CM then received call from Traci at [facility] and states that Dr. Archibald is the accepting physician and that she will set up transport for pt for am around 1000. She states they would like medical record with disks sent with pt and that RN can call report to [facility] floor when transport arrives for pt tomorrow. Number for report [phone] Fitch, Jad U charge, Vernell RN, and pt updated at this time, voice understanding. Traci from [facility] states she will notify floor of transport time once she gets it set up. She states she will be faxing a consent to transfer form for pt and Dr. Fitch to sign that will need faxed back to [facility] once complete. Kristen RN CM Addendum entered by Chastity Vasquez 04/17/19 10:57: Call back from Traci at [facility] and she states that her campaign specialist would like to speak with Dr. Amor, not the hospitalist at this time. Advised Traci how to page Dr. Amor at this time and Jad, U charge, aware and did cortext Dr. Amor so that he is aware that [facility] will be paging him at this time. This RN CM is awaiting a call back from [facility]. Kristen RN CM Original Note: Updated clinicals faxed to the [facility] this am. This RN CM received call from Traci at [facility] at this time requesting call back number for Dr. Fitch and she states that she will discuss with cardiology and then they will call Dr. Fitch. Dr. Fitch aware, voices understanding. Traci stated she had not received the updated clinicals yet but was updated via phone on cardiology note, VS, and labs at this time, voiced understanding. Traci states she will update this RN CM as soon as she can. Pt updated on all at this time, voices understanding. Kristen RN CM
[2019-04-17 12:21] LABS: Bedside Glucose 170 mg/dL (70-110)
--- NOTE | 2019-04-17 12:35 | PN_ITS ---
Patient Problems: Active and Suspected Problems (Last Reviewed 02/01/19 @ 12:31 by Ian Allen MD) CHF (congestive heart failure) (Acute) Reason for Visit: CHF Subjective: decreased LE edema. Vitals/I&O's: Vital Signs Temp Pulse Resp BP Pulse Ox 36.6 C 88 18 93/48 L 95 04/17/19 09:16 04/17/19 09:16 04/17/19 09:16 04/17/19 09:16 04/17/19 09:16 Oxygen Flow Rate (L/min) 2 Oxygen Delivery Method Room Air Weight: 99.5 kg Body Mass Index (BMI) 36.8 Intake and Output for Last 24 Hours 04/15/19 04/16/19 04/17/19 23:59 23:59 23:59 Intake Total 733.03 / 733.03 1184.85 / 1184.85 1590 / 1590 Output Total 3700 / 3700 4550 / 4550 2700 / 2700 Balance -2966.97 / -2966.97 -3365.15 / -3365.15 -1110 / -1110 General: Alert, No apparent distress HEENT: Atraumatic, Normocephalic Oral: Moist Mucosa, No Gingival or Mucosal Lesions/ Ulcerations Neck: No Nodes, Trachea Midline Lungs: Clear to auscultation, Normal air movement, No rhonchi, No wheeze, No rales Cardiovascular: Regular rate, Regular Rhythm, Normal S1, Normal S2, No murmurs Abdomen: Bowel Sounds Present, Soft, Non Tender, Non-Distended, No Hepato- splenomegaly Extremities: Edema - less taut than 04/16, - - RLE > LLE Skin: No rashes, No breakdown Musculoskeletal: No Tenderness to Palpation of Joints or Extremities, No Muscle Wasting Psych/Mental Status: Normal Affect, Appropriate Laboratory Results 04/16/19 16:57: POC Glucose 134 H 04/16/19 22:04: POC Glucose 174 H 04/17/19 06:28: Sodium 143, Potassium 3.7, Chloride 102, Carbon Dioxide 39.0 H, Anion Gap 2 L, BUN 41 H, Creatinine 1.25, Estim Creat Clear Calc 57.42, Est GFR (MDRD) Af Amer 76, Est GFR (MDRD) Non-Af 63, BUN/Creatinine Ratio 32.8 H, Glucose 163 H, Calcium 8.4 L 04/17/19 08:23: POC Glucose 164 H 04/17/19 12:12: POC Glucose 170 H Current Medications Acetaminophen (Tylenol) 650 mg PO Q6H PRN PRN PRN Reason: Pain Score 1-10/Temp > 100.7 F Aspirin (Aspirin, Baby) 81 mg PO DAILYCM [facility] Last Admin: 04/17/19 09:17 Dose: 81 mg Documented by: Atorvastatin Calcium (Lipitor) 80 mg PO QHS [facility] Last Admin: 04/16/19 22:09 Dose: 80 mg Documented by: Folic Acid (Folic Acid) 1 mg PO DAILYCM [facility] Last Admin: 04/17/19 09:17 Dose: 1 mg Documented by: Heparin Sodium (Porcine) (Heparin Na) 5,000 unit SC Q12 [facility] Last Admin: 04/17/19 09:18 Dose: 5,000 unit Documented by: Furosemide 500 mg/ N/A 50 mls @ 1 mls/hr CONT INF .Q50H [facility] Last Admin: 04/16/19 13:18 Dose: 10 mg/hr, 1 mls/hr Documented by: Sodium Chloride () 500 mls @ 15 mls/hr IV PRN PRN PRN Reason: Blood Transfusion Sodium Chloride () 250 mls @ 15 mls/hr IV .[id number] PRN PRN Reason: Saline Flush Sodium Chloride () 250 mls @ 15 mls/hr IV .[id number] PRN PRN Reason: Additional IVPB Infusion Insulin Human Lispro (Humalog Kwikpen (Bkc)) 5 unit SC 0800,1200,1700 [facility] Last Admin: 04/17/19 12:16 Dose: 5 unit Documented by: Insulin Human Lispro (Humalog Kwikpen (Bkc)) 0 unit SC ACHS [facility]; Protocol Last Admin: 04/17/19 12:16 Dose: 3 units Documented by: Insulin Human NPH (Humulin N (Bkc)) 15 units SC BID [facility] Last Admin: 04/17/19 08:28 Dose: 15 u Documented by: Isosorbide Dinitrate (Isordil) 10 mg PO TID [facility] Last Admin: 04/17/19 05:34 Dose: 10 mg Documented by: Lisinopril (Zestril) 10 mg PO BID [facility] Last Admin: 04/17/19 09:18 Dose: Not Given Documented by: Metoprolol Succinate (Toprol Xl (Beta Cash)) 50 mg PO DAILY [facility] Last Admin: 04/17/19 09:18 Dose: Not Given Documented by: Nutritional Formula (Lactose Free) (Glucerna Shake) 120 ml PO 4X/DAY [facility] Last Admin: 04/17/19 09:18 Dose: 120 ml Documented by: Ondansetron HCl (Zofran) 4 mg IV Q8H PRN PRN PRN Reason: NAUSEA/VOMITING Sodium Chloride () 10 - 40 ml IV UD PRN PRN Reason: SALINE FLUSH Last Admin: 04/16/19 13:18 Dose: 10 ml Documented by: STROKE Vital Signs/Narrative: Vital Signs Temp Pulse Resp BP Pulse Ox 04/17/19 09:16 36.6 C 88 18 93/48 L 95 Medical Necessity - Tobacco Use Smoking Status: Former smoker Assessment/Plan All Active Problems (Last Reviewed 02/01/19 @ 12:31 by Ian Allen MD) CHF (congestive heart failure) (Acute) History of non-ST elevation myocardial infarction (NSTEMI) (Resolved 12/15/18) H/O coronary artery bypass surgery (Resolved 12/31/18) History of coronary artery stent placement (Resolved 2011) Acute on chronic combined systolic (congestive) and diastolic (congestive) heart failure (Acute) Postoperative atrial fibrillation (Resolved 01/01/19) Assessment: 1. acute HFrEF: ongoing. weight down 2. ischemic cardiomyopathy 3. acute hypoxic respiratory insufficiency, now on room air 4. chronic conditions: DM2, HTN, HLP, anemia, h/o post-op afib Plan 1. Given patient's complexity and worsening EF, patient needs evaluation at tertiary facility for a possible cardiac catheterization, which would be high- risk. 2. continue furosemide gtt 3. lisinopril 4. metoprolol tartrate 5. cardiology following 6. VTE proph: SQ heparin 7. DW [facility] specialist icu about the case. He requested to discuss with Dr. Amor. Patient has since been accepted to go to the [facility], but will not be taken until 03/2019. Greater than 35 minutes of which greater than 50% of the time was counseling the patient and [facility]. Code Visit Inpatient E&M: 21662 Subs Hosp L3
--- NOTE | 2019-04-17 12:56 | PN.CARD_ITS ---
Subjectve: The patient was evaluated earlier this day. He stated his breathing was improving with his diuresis. He continues with lower extremity peripheral pi tting edema. Objective: Vital Signs Temp Pulse Resp BP Pulse Ox 97.8 F 88 18 93/48 L 95 04/17/19 09:16 04/17/19 09:16 04/17/19 09:16 04/17/19 09:16 04/17/19 09:16 Oxygen Flow Rate (L/min) 2 Oxygen Delivery Method Room Air Weight: 219 lb 5.759 oz Body Mass Index (BMI) 36.8 Intake and Output for Last 24 Hours 04/15/19 04/16/19 04/17/19 23:59 23:59 23:59 Intake Total 733.03 / 733.03 1184.85 / 1184.85 1590 / 1590 Output Total 3700 / 3700 4550 / 4550 2700 / 2700 Balance -2966.97 / -2966.97 -3365.15 / -3365.15 -1110 / -1110 General: Awake, Alert, Oriented x 3, Cooperative HEENT: Atraumatic, Normocephalic, PERRL, EOMI, Sclera Non Icteric Oral: Moist Mucosa Neck: Supple, Good ROM, No JVD Lungs: Diminished Devaughn Bases Cardiovascular: Regular Rhythm, Premature Ectopic Beats, Normal S1, Normal S2 Abdomen: Bowel Sounds Present, Soft Extremities: Severe RLE Edema, Severe LLE Edema Psych/Mental Status: Appropriate 04/17/19 06:28: Sodium 143, Potassium 3.7, Chloride 102, Carbon Dioxide 39.0 H, Anion Gap 2 L, BUN 41 H, Creatinine 1.25, Est GFR (MDRD) Af Amer 76, Est GFR (MDRD) Non-Af 63, BUN/Creatinine Ratio 32.8 H, Glucose 163 H, Calcium 8.4 L Rhythm: Sinus rhythm Medical Necessity - Tobacco Use Smoking Status: Former smoker Assessment/Plan 1. CAD status post PCI-remote status post CABG-recent The patient does have an extensive history of underlying CAD requiring revascularization therapy as noted above. The present time he is without symptoms of classic angina pectoris. His initial troponin I level was negative. He will need to continue medical therapy for his underlying CAD process. Ideally this would include agent such as aspirin, nitrates as needed, beta- blockers, lipid-lowering agents, etc. 2. Ischemic mediated cardiomyopathy The patient does have a history of an ischemic mediated cardiomyopathy. Based upon review of his previous medical records available for review it appears he has had diminished LV systolic function with question of transient improvement in his LV systolic function immediately post CABG and now with findings demonstrating significantly diminished LV systolic function again. At the present time he will continue medical therapy. This could include agents such as nitrates, beta-blockers, diuretics, and afterload reducing agents. There is a concern as to whether or not the patient has had progression of his [place] vessel disease process and/or early graft vessel disease. Thus he has been recommended for transfer back to a tertiary care center for reevaluation in the cardiac catheterization laboratory. 3. Acute on chronic systolic mediated CHF The patient does have findings of acute on chronic systolic mediated CHF. This is thought secondary to his ischemic cardiomyopathy secondary to his underlying coronary artery disease process. At the present time he is being followed. He is being treated medically. This includes IV diuretics. Hopefully this will help with his volume status that which will allow him to undergo a future diagnostic cardiac catheterization. 4. Postoperative paroxysmal atrial fibrillation At the moment he remains in sinus rhythm. He will continue medical management as deemed appropriate. 5. Hyperlipidemia He should continue risk factor evaluation and care/medical therapy. 6. Hypertension His blood pressure should be followed and his medications can be adjusted as needed. Comment: The patient does have complex cardiovascular disease and has required, as noted above, during his invasive/interventional/surgical procedures the assistance of intra-aortic balloon pumps and will Impella type devices. Thus it was felt based upon that history, if he did require repeat diagnostic cardiac catheterization and potentially catheter based revascularization procedure, that this be performed at a tertiary care center. The patient's case was discussed via telephone with the [facility] cardiology team. They agreed to accept the patient in transfer for further evaluation and care of his complex cardiovascular disease history. Comment: The patient's case has been discussed and reviewed with the patient as well as Dr. Lambert and Dr. Fitch. This note was generated using a voice recognition system and there may be incorrect words, spelling or punctuation that were not noted when reviewing the office note prior to saving.
[2019-04-17 17:30] LABS: Bedside Glucose 139 mg/dL (70-110)
[2019-04-17] MEDS: Furosemide 500 MG in Empty Viaflex 50 mL 1 EACH CONT INF (21:21)
[2019-04-17] MEDS: Atorvastatin Calcium 80 MG Tablet PO (21:34)
[2019-04-17] MEDS: Lisinopril 10 MG Tablet PO (21:34)
[2019-04-17 23:20] LABS: Bedside Glucose 203 mg/dL (70-110)
[2019-04-18 03:00] VITALS: PULSE 97
[2019-04-18 03:05] VITALS: BP 122/92; PULSE 77; RESP 18; TEMP 37; O2SAT 93
[2019-04-18] MEDS: Isosorbide DN 10 MG Tablet PO (06:51)
[2019-04-18] MEDS: Insulin Lispro 100 UNIT/ML INSULN.PEN SC (06:59)
[2019-04-18 07:00] VITALS: PULSE 97
[2019-04-18 07:06] LABS: Bedside Glucose 150 mg/dL (70-110)
[2019-04-18 08:21] VITALS: O2SAT 93
--- NOTE | 2019-04-18 08:23 | PN.CARD_ITS ---
Subjectve: The patient is awake and alert. He has been up and ambulating. He states his breathing has improved. However, he continues to have peripheral pitting edema up to and involving his thighs. Objective: Vital Signs Temp Pulse Resp BP Pulse Ox 98.6 F 97 18 122/92 H 93 04/18/19 03:05 04/18/19 07:00 04/18/19 03:05 04/18/19 03:05 04/18/19 08:21 Oxygen Flow Rate (L/min) 2 Oxygen Delivery Method Room Air Weight: 205 lb 11.06 oz Body Mass Index (BMI) 36.8 Intake and Output for Last 24 Hours 04/16/19 04/17/19 04/18/19 23:59 23:59 23:59 Intake Total 1184.85 / 1184.85 2484.68 / 2484.68 Output Total 4550 / 4550 4750 / 4750 1540 / 1540 Balance -3365.15 / -3365.15 -2265.32 / -2265.32 -1540 / -1540 General: Awake, Alert, Oriented x 3, Cooperative, No Acute Distress HEENT: Atraumatic, Normocephalic, PERRL, EOMI, Sclera Non Icteric Oral: Moist Mucosa Neck: Supple, Good ROM, No JVD Lungs: Clear to auscultation Cardiovascular: Regular Rhythm, Normal S1, Normal S2 Abdomen: Bowel Sounds Present, Soft, Non Tender Extremities: Severe RLE Edema, Severe LLE Edema Psych/Mental Status: Appropriate Rhythm: Sinus rhythm; 1 episode appearing compatible with a PSVT Medical Necessity - Tobacco Use Smoking Status: Former smoker Assessment/Plan 1. CAD status post PCI-remote status post CABG-recent The patient does have an extensive history of underlying CAD requiring revascularization therapy as noted above. The present time he is without symptoms of classic angina pectoris. His initial troponin I level was negative. He will need to continue medical therapy for his underlying CAD process. Ideally this would include agent such as aspirin, nitrates as needed, beta- blockers, lipid-lowering agents, etc. 2. Ischemic mediated cardiomyopathy The patient does have a history of an ischemic mediated cardiomyopathy. Based upon review of his previous medical records available for review it appears he has had diminished LV systolic function with question of transient improvement in his LV systolic function immediately post CABG and now with findings demonstrating significantly diminished LV systolic function again. At the present time he will continue medical therapy. This could include agents such as nitrates, beta-blockers, diuretics, and afterload reducing agents. There is a concern as to whether or not the patient has had progression of his agdaag[place] vessel disease process and/or early graft vessel disease. Thus he has been recommended for transfer back to a tertiary care center for reevaluation in the cardiac catheterization laboratory. Also, if the patient's LV systolic function remains low despite medical therapy, revascularization therapy, etc. then he should be considered for EP consultation for ICD placement. 3. Acute on chronic systolic mediated CHF The patient does have findings of acute on chronic systolic mediated CHF. This is thought secondary to his ischemic cardiomyopathy secondary to his underlying coronary artery disease process. At the present time he is being followed. He is being treated medically. This includes IV diuretics. 4. Postoperative paroxysmal atrial fibrillation At the moment he remains in sinus rhythm. He had one brief episode appearing compatible with a PSVT. He believes he may have since this. He had no obvious hemodynamic compromise. He will continue medical management as deemed appropriate. 5. Hyperlipidemia He should continue risk factor evaluation and care/medical therapy. 6. Hypertension His blood pressure should be followed and his medications can be adjusted as needed. Comment: The patient does have complex cardiovascular disease and has required, as noted above, during his invasive/interventional/surgical procedures the assistance of intra-aortic balloon pumps and will Impella type devices. Thus it was felt based upon that history, if he did require repeat diagnostic cardiac catheterization and potentially catheter based revascularization procedure, that this be performed at a tertiary care center. The patient's case was discussed yesterday via telephone with the [facility] cardiology team. They agreed to accept the patient in transfer for further evaluation and care of his complex cardiovascular disease history. Comment: The patient's case has been discussed and reviewed with the patient. This note was generated using a voice recognition system and there may be incorrect words, spelling or punctuation that were not noted when reviewing the office note prior to saving.
[2019-04-18 08:42] LABS: Anion Gap 4 (5-15); BUN 42 mg/dL (7-18); BUN/Creat Ratio 35.9 RATIO (10-20); Calcium,Total 8.7 mg/dL (8.5-10.1); Chloride 98 mmol/L (98-107); Creatinine, Serum 1.17 mg/dL (0.70-1.30); EST Glomerular Filtration Rate 68 mL/min (>60); Est Glom Filt Rate - Afr Amer 82 mL/min (>60); Estimated Creatinine Clearance 61.35 ml/min; Glucose 131 mg/dL (74-106); Potassium 3.7 mmol/L (3.5-5.1); Sodium Level 142 mmol/L (136-145)
--- NOTE | 2019-04-18 08:55 | PCM.DC.SUM ---
Discharge Date and Diagnosis - Problem List Patient Problems: Active and Suspected Problems (Last Reviewed 02/01/19 @ 12:31 by Ian Allen MD) CHF (congestive heart failure) (Acute) Date of Admission: 04/14/19 Date of Discharge: 04/18/19 - Primary Discharge Diagnosis Active and Suspected Problems (Last Reviewed 02/01/19 @ 12:31 by Ian Allen MD) 1. acute HFrEF: ongoing. weight down 2. ischemic cardiomyopathy 3. acute hypoxic respiratory insufficiency, now on room air - Secondary Discharge Diagnosis Chronic Problems (Last Reviewed 02/01/19 @ 12:31 by Ian Allen MD) Atherosclerosis of coronary artery of minto heart without angina pectoris (Chronic) Ischemic cardiomyopathy (Chronic) Secondary pulmonary arterial hypertension (Chronic) Essential (primary) hypertension (Chronic) Hyperlipidemia (Chronic) Right bundle branch block (RBBB) (Chronic) Hospital Course and Treatment Imaging Results: Clinical Impression(s) from Imaging Studies Chest X-Ray 04/14/19 11:08 IMPRESSION: No suspicious acute cardiopulmonary pathology given the limited inspiratory effort. 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 Mildly dilated right ventricle, mild global right ventricular systolic dysfunction. Left atrial and mildly enlarged. Mild diffuse mitral valve thickening. Mitral valve doming hockey sticking right ventricular systolic pressure of 45 mmHg. Summary of Care Provided: The patient is a 58 year old M presents with shortness of breath. Patient had been having generalized swelling over the past several weeks and then got even worse over the past few days prior to arrival. Was having orthopnea. Patient had recent increase to his Bumex. Despite that, patient just continue to get worse. Patient presented to the emergency room and had acute hypoxic respiratory insufficiency, with a pulse ox of 82% on room air. Patient was started on a furosemide drip. She had a open heart surgery within the past year. Patient has had a recent worsening of his ejection fraction. With that, cardiology recommended transfer back to [facility]. Unfortunately, the patient had insurance then outside the [place] but that has since lapsed. So patient was eventually able to be transferred to the [place] and patient be transferred today where he would be evaluated cardiology there. Is feeling of the front counter attendant at our institution that the patient will be high risk cardiac catheterization. I told patient that they will evaluate and determine when and if a cardiac catheterization would be appropriate. Overall, the patient has done well and has lost over 10 kg of weight with the furosemide drip. Patient is currently on room air and has no respiratory complaints at this time. Still does have marketed lower extremity edema however. [] Patient Problems: Active and Suspected Problems (Last Reviewed 02/01/19 @ 12:31 by Ian Allen MD) CHF (congestive heart failure) (Acute) - Physical Exam Vitals/I&O's: Vital Signs Temp Pulse Resp BP Pulse Ox 37.0 C 97 18 122/92 H 93 04/18/19 03:05 04/18/19 07:00 04/18/19 03:05 04/18/19 03:05 04/18/19 08:21 Oxygen Flow Rate (L/min) 2 Oxygen Delivery Method Room Air Weight: 93.3 kg Body Mass Index (BMI) 36.8 Intake and Output for Last 24 Hours 04/16/19 04/17/19 04/18/19 23:59 23:59 23:59 Intake Total 1184.85 / 1184.85 2484.68 / 2484.68 Output Total 4550 / 4550 4750 / 4750 1540 / 1540 Balance -3365.15 / -3365.15 -2265.32 / -2265.32 -1540 / -1540 General: Alert, No apparent distress HEENT: Atraumatic, Normocephalic Oral: Moist Mucosa, No Gingival or Mucosal Lesions/ Ulcerations Neck: No Nodes, Trachea Midline Lungs: - - Bibasilar crackles Cardiovascular: Regular rate, Regular Rhythm, Normal S1, Normal S2 Abdomen: Bowel Sounds Present, Soft, Non Tender, Non-Distended Extremities: Edema - Slightly more taut today. Psych/Mental Status: Normal Affect, Appropriate Laboratory Results 04/17/19 12:12: POC Glucose 170 H 04/17/19 17:23: POC Glucose 139 H 04/17/19 21:30: POC Glucose 203 H 04/18/19 06:57: POC Glucose 150 H 04/18/19 08:04: Sodium 142, Potassium 3.7, Chloride 98, Carbon Dioxide 40.0 H, Anion Gap 4 L, BUN 42 H, Creatinine 1.17, Estim Creat Clear Calc 61.35, Est GFR (MDRD) Af Amer 82, Est GFR (MDRD) Non-Af 68, BUN/Creatinine Ratio 35.9 H, Glucose 131 H, Calcium 8.7 Current Medications Acetaminophen (Tylenol) 650 mg PO Q6H PRN PRN PRN Reason: Pain Score 1-10/Temp > 100.7 F Aspirin (Aspirin, Baby) 81 mg PO DAILYCM [facility] Last Admin: 04/17/19 09:17 Dose: 81 mg Documented by: Atorvastatin Calcium (Lipitor) 80 mg PO QHS [facility] Last Admin: 04/17/19 21:34 Dose: 80 mg Documented by: Folic Acid (Folic Acid) 1 mg PO DAILYCM [facility] Last Admin: 04/17/19 09:17 Dose: 1 mg Documented by: Heparin Sodium (Porcine) (Heparin Na) 5,000 unit SC Q12 [facility] Last Admin: 04/17/19 21:32 Dose: 5,000 unit Documented by: Furosemide 500 mg/ N/A 50 mls @ 1 mls/hr CONT INF .Q50H [facility] Last Infusion: 04/17/19 23:59 Dose: 10 mg/hr, 1 mls/hr Documented by: Sodium Chloride () 500 mls @ 15 mls/hr IV PRN PRN PRN Reason: Blood Transfusion Sodium Chloride () 250 mls @ 15 mls/hr IV .[id number] PRN PRN Reason: Saline Flush Sodium Chloride () 250 mls @ 15 mls/hr IV .[id number] PRN PRN Reason: Additional IVPB Infusion Insulin Human Lispro (Humalog Kwikpen (Bkc)) 5 unit SC 0800,1200,1700 [facility] Last Admin: 04/17/19 17:24 Dose: 5 unit Documented by: Insulin Human Lispro (Humalog Kwikpen (Bkc)) 0 unit SC ACHS [facility]; Protocol Last Admin: 04/18/19 06:59 Dose: 3 units Documented by: Insulin Human NPH (Humulin N (Bkc)) 15 units SC BID [facility] Last Admin: 04/17/19 21:33 Dose: 15 u Documented by: Isosorbide Dinitrate (Isordil) 10 mg PO TID [facility] Last Admin: 04/18/19 06:51 Dose: 10 mg Documented by: Lisinopril (Zestril) 10 mg PO BID [facility] Last Admin: 04/17/19 21:34 Dose: 10 mg Documented by: Metoprolol Succinate (Toprol Xl (Beta Cash)) 50 mg PO DAILY [facility] Last Admin: 04/17/19 09:18 Dose: Not Given Documented by: Nutritional Formula (Lactose Free) (Glucerna Shake) 120 ml PO 4X/DAY [facility] Last Admin: 04/17/19 21:44 Dose: 120 ml Documented by: Ondansetron HCl (Zofran) 4 mg IV Q8H PRN PRN PRN Reason: NAUSEA/VOMITING Sodium Chloride () 10 - 40 ml IV UD PRN PRN Reason: SALINE FLUSH Last Admin: 04/16/19 13:18 Dose: 10 ml Documented by: Discharge Diet: 6 Cup Fluid Restriction, 2000 mg Sodium Diet Home Medications: Medications to take at Discharge Aspirin [Aspirin, Baby] 81 mg PO DAILY 12/15/18 ascorbate calcium (vitamin C) 500 mg tablet 500 mg PO DAILY 02/01/19 atorvastatin 80 mg tablet 80 mg PO DAILY #90 tab 02/01/19 folic acid 1 mg tablet 1 mg PO DAILY 02/01/19 metoprolol succinate 25 mg tablet,extended release 24 hr 25 mg PO DAILY #90 tab 02/01/19 Bumetanide 4 mg PO BID 04/14/19 Insulin Lispro [Humalog] 5 unit SQ TIDCM 04/14/19 Insulin NPH Human [Humulin N Pen] 15 unit SQ BID 04/14/19 Liraglutide [Victoza] 0.6 mg SQ DAILY 04/14/19 Primary Care Physician: Care Physician,No Primary [NON-STAFF] - Disposition: Acute care Hospital Minutes spent on discharge:: 32 Patient Condition:: Stable Medical Necessity - Tobacco Use Smoking Status: Former smoker Meaningful Use Info Meaningful Use Diagnoses (Choose all that apply): CHF - CHF ALLISON/ARB ordered at discharge?: Yes Documented LVEF (%): 20 Code Visit Inpatient E&M: 97210 Disch Hosp
[2019-04-18 09:03] VITALS: BP 110/64; PULSE 97; RESP 18; TEMP 36.4; O2SAT 94
[2019-04-18] MEDS: Lisinopril 10 MG Tablet PO (09:22)
[2019-04-18] MEDS: Folic Acid 1 MG Tablet PO (09:22)
[2019-04-18] MEDS: Aspirin 81 MG TAB.CHEW PO (09:22)
[2019-04-18 09:23] VITALS: PULSE 97
[2019-04-18] MEDS: Metoprolol(XL)Succ 50 MG Tablet PO (09:23)
[2019-04-18] MEDS: Glucerna Shake 120 ML LIQUID PO (09:24)
--- NOTE | 2019-04-18 10:43 | NURSING ---
Addendum entered by Violeta See 04/18/19 10:51: Received call from Joy CUNNINGHAM at [place] for report. Report given at [phone]. Original Note: [place] [phone] [place] [phone]. [place] [phone] new extension given to this RN by community integration specialist. Spoke with a staff member, who took down phone number to call back. Advised that patient has left [facility] 30 mins ago.
== END 2019-04-18 10:10 | DRG 293 ==
LOC: ED 11:28 → PCU 13:08
PROVIDERS: Internal Medicine Cardiovascular Disease; Nurse Practitioner Family; Admitting Provider Internal Medicine; Emergency Provider Emergency Medicine
DX: I11.0 Hypertensive heart disease with heart failure (principal); I50.23 Acute on chronic systolic (congestive) heart failure; I25.10 Atherosclerotic heart disease of native coronary artery without angina pectoris; E11.9 Type 2 diabetes mellitus without complications; E78.5 Hyperlipidemia, unspecified; D64.9 Anemia, unspecified; R09.02 Hypoxemia; R06.89 Other abnormalities of breathing; Z95.5 Presence of coronary angioplasty implant and graft; Z87.891 Personal history of nicotine dependence; Z95.1 Presence of aortocoronary bypass graft; I25.2 Old myocardial infarction; Z79.82 Long term (current) use of aspirin; I25.5 Ischemic cardiomyopathy; I45.10 Unspecified right bundle-branch block; Z79.4 Long term (current) use of insulin
CPT/HCPCS: 36415; 71045; 80048; 80076; 82962; 83880; 84484; 85025; 85027; 93005; 93306; 97802; 99285; Q9957; A4216; C8929; J1940

== ENCOUNTER 2019-12-07 07:34 | Emergency (ER) | payer OTHER, SELFPAY ==
[2019-04-14 13:10] VITALS: BMI 36.8
[2019-12-07 07:37] VITALS: BP 122/64; PULSE 94; RESP 18; TEMP 35.7; O2SAT 94; BMI 29.0
--- NOTE | 2019-12-07 08:05 | EKG12_ITS ---
Test Reason : Blood Pressure : / mmHG Vent. Rate : 096 BPM Atrial Rate : 096 BPM P-R Int : 186 ms QRS Dur : 136 ms QT Int : 430 ms P-R-T Axes : 054 -41 016 degrees QTc Int : 543 ms Atrial-sensed ventricular-paced rhythm Biventricular pacemaker detected Abnormal ECG Confirmed by BETTINA BURKETT, MARLYN ([id number]), supervising editor news reel ERNST OSCAR ([id number]) on 12/11/2019 10:49:12 AM Referred By: WILFREDO Confirmed By:MAYUR DUNBAR MD
--- NOTE | 2019-12-07 08:05 | RAD_ITS ---
STUDY: X-RAY CHEST REASON FOR EXAM: Male, 59 years old. Compartment syndrome left arm TECHNIQUE: AP upright portable view. COMPARISON: 04/14/2019. FINDINGS: Triple chamber pacing lead tips in the right atrium, right ventricle and left ventricle. Mild pulmonary hypoinflation. Small calcified granuloma in the right midlung. No suspicious infiltrates. There is no demonstrated pleural abnormality. Normal size heart. Normal mediastinum and reyna. Normal visualized pulmonary arteries. Normal visualized aortic arch and descending thoracic aorta. Normal visualized thoracic spine. Normal visualized ribs, clavicles, and shoulders. There is no demonstrated abnormality of the visualized soft tissue structures of the upper abdomen. RAD/Chest 1 View (Portable) IMPRESSION: 1. No acute cardiopulmonary pathology. 2. Interval placement of triple chamber pacing lead tips in right atrium, right ventricle and left ventricle. Electronically Signed: Jad Correa MD at 8:32 EDT , Service support ,
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
[2019-12-07] MEDS: Ondansetron 4 MG/2 ML Vial IV (08:09)
[2019-12-07] MEDS: morphine 8 MG/ML Syringe IV (08:09)
--- NOTE | 2019-12-07 08:18 | RAD_ITS ---
STUDY: X-RAY - LEFT RADIUS AND ULNA REASON FOR EXAM: Male, 59 years old. Compartment syndrome left arm, sutures in left arm last week TECHNIQUE: 2 view(s) of the forearm. COMPARISON: None. FINDINGS: There is no demonstrated soft tissue swelling. Small degenerative cyst in the distal end of the radius. Normal remaining radius. Normal visualized ulna. RAD/Forearm 2 Views IMPRESSION: 1. Degenerative cyst in the distal end of the left radius. 2. No acute osseous abnormality of the left radius and ulna. Electronically Signed: Jad Correa MD at 8:34 EDT , Service support ,
[2019-12-07 08:33] LABS: Absolute Lymphocyte Count 1.25 X10^3/uL (0.83-4.51); Absolute Neutrophil Count 10.9 X10^3/uL (2.0-7.7); Basophil# 0.06 X10^3/uL; Basophil% 0.4 % (0-1); Eosinophil# 0.18 X10^3/uL; Eosinophils% 1.3 % (0-5); Hematocrit 35.5 % (40-54); Hemoglobin 10.8 g/dL (13.0-16.5); Lymphocyte # 1.25 X10^3/ul (4.0); Lymphocyte % 9.3 % (19-41); Mean Corp Hgb Conc 30.4 g/dL (32-36); Mean Corpuscular Volume 95.4 fL (80-94); Mean Platelet Vol. 10.2 fl (6.2-12.0); Monocyte# 1.06 X10^3/uL; Monocyte% 7.9 % (0-10); NRBC Flagged by Analyzer 0 % (0-5); Neutrophil # 10.88 X10^3/uL (2.7-7.7); Neutrophil % 80.7 % (47-70); Platelet Count 279 K/mm3 (150-450); RBC Distribution Width CV 13.2 % (11.6-14.6); RBC Distribution Width SD 46.5 fl (35.1-43.9); Red Blood Count 3.72 M/mm3 (4.6-6.2); White Blood Count 13.5 K/mm3 (4.4-11.0)
[2019-12-07 08:38] LABS: Anion Gap 6 (5-15); BUN 44 mg/dL (7-18); BUN/Creat Ratio 22.7 RATIO (10-20); Chloride 108 mmol/L (98-107); Creatinine, Serum 1.94 mg/dL (0.70-1.30); EST Glomerular Filtration Rate 38 mL/min (>60); Est Glom Filt Rate - Afr Amer 46 mL/min (>60); Estimated Creatinine Clearance 36.54 ml/min; Glucose 228 mg/dL (74-106); Potassium 4.5 mmol/L (3.5-5.1); Sodium Level 139 mmol/L (136-145)
[2019-12-07 08:49] VITALS: BP 124/69; PULSE 93; RESP 14; TEMP 36.1; O2SAT 95
[2019-12-07 09:10] LABS: International Normalized Ratio 1.1; Prothrombin Time (Protime)PT. 13.6 SECONDS (11.7-14.9)
[2019-12-07 09:18] LABS: CPK Total, Creatine Kinase 256 U/L (39-308)
== END 2019-12-07 08:39 | disposition short-term general hospital (02) ==
LOC: ED 08:10
PROVIDERS: Emergency Provider Emergency Medicine
DX: T79.A12A Traumatic compartment syndrome of left upper extremity, initial encounter (principal); Z95.0 Presence of cardiac pacemaker; Z95.1 Presence of aortocoronary bypass graft; Z95.5 Presence of coronary angioplasty implant and graft; Z87.891 Personal history of nicotine dependence; X58.XXXA Exposure to other specified factors, initial encounter
CPT/HCPCS: 71045; 73090; 80048; 82550; 85025; 85610; 93005; 96365; 96375; 99283; J7030; A4216; J2405